=== PATIENT | female | born 1945 | race Caucasian/White ===

== ENCOUNTER 2017-11-21 11:46 | Observation (INO) | payer OTHER ==
--- NOTE | 2017-11-21 13:38 | RAD REPORT ---
EXAM DESCRIPTION: CT - Head Brain Wo Cont - 11/21/2017 1:09 pm CLINICAL HISTORY: Headache, hypertension COMPARISON: None. TECHNIQUE: Axial 5 mm thick images of the head were obtained without IV contrast. All CT scans are performed using dose optimization technique as appropriate and may include automated exposure control or mA/KV adjustment according to patient size. FINDINGS: No intracranial hemorrhage present. No edema, mass effect or shift of midline structures. No cortical edema or sulcal effacement. No significant atrophy and only minimal chronic ischemic lyon ge. Ventricles are normal. In the supra sella region there is an 8 millimeter fatty mass with calcification along the posterior wall. Dermoid/teratoma and hypothalamic lipoma would be differential considerations. The low-density craniopharyngioma felt to be a lesser consideration. No CT findings that would suggest rupture of a d ermoid/teratoma. Mastoid air cells and visualized portions of the paranasal sinuses are clear. No acute bony findings. IMPRESSION: No hemorrhage or acute intracranial finding. A small 8 mm fatty mass in the suprasellar region is present likely a dermoid/teratoma or hypothalami c lipoma. No evidence for leakage or rupture. Supra sella masses can be associated with headache symptoms. However, this usually requires a much la rger sized mass or rupture of a dermoid/ teratoma, neither of which are present on this examination.
[2017-11-21 14:00] LABS: Protime INR 0.97
[2017-11-21 14:01] LABS: Absolute Lymphocytes (CBC) 5.3 K/uL (0.7-4.9); Absolute Monocytes 1.1 K/uL (0.1-1.3); Absolute Neutrophil 8.3 K/uL (1.8-8.0); Basophils % 1.7 % (0-1.3); Eosinophils % 1.3 % (0-4.4); Hematocrit 41.8 % (36.0-45.0); Lymphocytes % 34.7 % (15.3-44.8); MCH 28.3 pg (27.0-35.0); MCV 88.3 fL (80-100); MPV 7.5 fL (7.6-11.3); Monocytes % 7.5 % (3.3-12.3); RBC Red Blood Cell Count 4.74 M/uL (3.86-4.86)
--- NOTE | 2017-11-21 14:02 | RAD REPORT ---
EXAM DESCRIPTION: RAD - Chest Single View - 11/21/2017 1:02 pm CLINICAL HISTORY: Chest pain, shortness of breath COMPARISON: September 2016 TECHNIQUE: AP portable chest image was obtained 1255 hours . FINDINGS: Interstitial markings are mildly prominent, increased from comparison. A few granulomas ar e present. No acute failure, infiltrate or mass. Heart and vasculature are normal. No measurable pleu ral effusion and no pneumothorax. No gross bony abnormality seen. No acute aortic findings suspected. IMPRESSION: No acute cardiopulmonary process. Patient has a mild baseline interstitial lung disease pattern. This is stable back to September 2016.
--- NOTE | 2017-11-21 14:03 | ER ---
Nurse's Notes [facility] Name: Lupis Puga Age: 71 yrs Sex: Female : 1945 Arrival Date: 11/21/2017 Time: 11:56 Bed 19 Private MD: Diagnosis: Essential (primary) hypertension;Chest pain, unspecified Presentation: 11/21 11:57 Presenting complaint: Patient states: Reports HTN for 2 days with chest pressure and aj dizziness. Transition of care: patient was not received from another setting of care. Onset of symptoms was November 19, 2017. Risk Assessment: Do you want to hurt yourself or someone else? Patient reports no desire to harm self or others. Initial Sepsis Screen: Does the patient meet any 2 criteria? No. Patient's initial sepsis screen is negative. Does the patient have a suspected source of infection? No. Patient's initial sepsis screen is negative. Care prior to arrival: None. 11:57 Method Of Arrival: Ambulatory 11:57 Acuity: OLIVIA 3 aj Triage Assessment: 12:01 General: Appears in no apparent distress. comfortable, Behavior is calm, cooperative, aj appropriate for age. Pain: Complains of pain in chest. Neuro: Level of Consciousness is awake, alert, obeys commands, Oriented to person, place, time, situation, Appropriate for age. Cardiovascular: Reports chest pain, fatigue, lightheadedness, nausea, Capillary refill < 3 seconds in bilateral fingers Patient's skin is warm and dry. Respiratory: Airway is patent Respiratory effort is even, unlabored, Respiratory pattern is regular, symmetrical. Derm: Skin is intact, is healthy with good turgor, Skin is pink, warm \T\ dry. normal. 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 - Social history:: Smoking status: Patient/guardian denies using tobacco. - Ebola Screening: : Patient negative for fever greater than or equal to 101.5 degrees Fahrenheit, and additional compatible Ebola Virus Disease symptoms Patient denies exposure to infectious person Patient denies travel to an Ebola-affected area in the 21 days before illness onset No symptoms or risks identified at this time. - Family history:: not pertinent. Screenin:30 Abuse screen: Denies threats or abuse. Denies injuries from another. Nutritional jl7 screening: No deficits noted. Tuberculosis screening: No symptoms or risk factors identified. Fall Risk IV access (20 points). Total Schumacher Fall Scale indicates No Risk (0-24 pts). Assessment: 13:30 General: Appears in no apparent distress. uncomfortable, Behavior is calm, cooperative, jl7 appropriate for age. Pain: Complains of pain in chest Pain does not radiate. Pain currently is 6 out of 10 on a pain scale. Quality of pain is described as pressure, Pain began 2-3 days ago. Is intermittent. Neuro: Level of Consciousness is awake, alert, obeys commands, Oriented to person, place, time, situation. Cardiovascular: Heart tones S1 S2 present Patient's skin is warm and dry. Respiratory: Airway is patent Respiratory effort is even, unlabored, Respiratory pattern is regular, symmetrical, Breath sounds are clear bilaterally. GI: No signs and/or symptoms were reported involving the gastrointestinal system. : No signs and/or symptoms were reported regarding the genitourinary system. EENT: No signs and/or symptoms were reported regarding the EENT system. Derm: Skin is pink, warm \T\ dry. Musculoskeletal: No signs and/or symptoms reported regarding the musculoskeletal system. Vital Signs: 12:01 BP 168 / 96; Pulse 84; Resp 18; Temp 98.6; Pulse Ox 96% on R/A; Weight 88 kg; Height 5 aj ft. 6 in. (167.64 cm); 13:15 BP 182 / 99; Pulse 62; Resp 17; Pulse Ox 92% on R/A; jl7 14:00 BP 136 / 77; Pulse 65; Resp 16; Pulse Ox 94% on R/A; jl7 15:57 BP 137 / 89; Pulse 69; Resp 16; Pulse Ox 97% ; jl7 12:01 Body Mass Index 31.31 (88.00 kg, 167.64 cm) ED Course: 11:56 Patient arrived in ED. aj 11:57 Triage completed. aj 12:01 Arm band placed on left wrist. Patient placed in an exam room. aj 12:32 Kvng Larios MD is Attending Physician. christina 12:54 Dinh Calixto RN is Primary Nurse. jl7 12:58 X-ray completed. Portable x-ray completed in exam room. Patient tolerated procedure jb2 well. 13:[address] via wheelchair. sj 13:02 XRAY Chest (1 view) In Process Unspecified. EDMS 13:02 CT completed. Patient tolerated procedure well. Patient moved back from CT. sj 13:09 CT Head Brain wo Cont In Process Unspecified. EDMS 13:30 Patient has correct armband on for positive identification. Placed in gown. Bed in low jl7 position. Call light in reach. Side rails up X 1. wheel and axle inspector on. Pulse ox on. NIBP on. 13:30 Initial lab(s) drawn, by ED staff, sent to lab. Inserted saline lock: 22 gauge in left jl7 antecubital area, using aseptic technique. Blood collected. Patient maintains SpO2 saturation greater than 95% on room air. 14:01 Vignesh Evans MD is Hospitalizing Provider. [facility] 16:19 No provider procedures requiring assistance completed. Patient admitted, IV remains in jl7 place. Administered Medications: 14:07 Drug: Lovenox 1 mg/kg Route: Sub-Q; Site: abdomen; jl7 16:09 Follow up: Response: No adverse reaction jl7 14:08 Drug: Aspirin Chewable Tablet 324 mg {Note: Pt reports taking 81 mg aspirin today, jl7 Administered 3 tabs.} Route: PO; 16:09 Follow up: Response: No adverse reaction jl7 16:05 Drug: Tylenol 650 mg Route: PO; jl7 16:09 Not Given (Physician Discretion): Lopressor (metoprolol TARTRATE) 50 mg PO once jl7 Outcome: 14:02 Decision to Hospitalize by Provider. christina 16:19 Admitted to Tele accompanied by tech, family with patient, via wheelchair, room 415, jl7 with chart, Report called to JESSICA Harding 16:19 Condition: stable 16:19 Discharge instructions given to patient, family, Instructed on the need for admit, Demonstrated understanding of instructions. 16:43 Patient left the ED. jl7 Signatures: Dispatcher [employer] EDMS Fisher, Lorena, Kvng Suarez RN, MD MD cha Buechter, Jesse jb2 Jones, Susan sj Martinez, Maria [facility] Dinh Calixto RN RN jl7 Corrections: (The following items were deleted from the chart) 14:12 13:57 BP 182 / 99; Pulse 62bpm; Resp 17bpm; Pulse Ox 92% RA; [facility]
--- NOTE | 2017-11-21 14:03 | EDPHYS ---
Physician Documentation [facility] Name: Lupis Puga Age: 71 yrs Sex: Female : 1945 Arrival Date: 11/21/2017 Time: 11:56 Bed 19 Private MD: ED Physician Kvng Larios HPI: 11/21 13:58 This 71 yrs old Female presents to ER via Ambulatory with complaints of High christina Blood Pressure, Chest Pain. 13:58 The patient has elevated blood pressure and discovered this at home. Onset: The christina symptoms/episode began/occurred 3 day(s) ago. 13:59 Onset: 3 day(s) ago. Modifying factors: The symptoms are aggravated by activity, The christina symptoms are alleviated by remaining still. The pain does not radiate. Associated signs and symptoms: Pertinent positives: dizziness, headache. The chest pain is described as a heaviness, a pressure. 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 - Social history:: Smoking status: Patient/guardian denies using tobacco. - Ebola Screening: : Patient negative for fever greater than or equal to 101.5 degrees Fahrenheit, and additional compatible Ebola Virus Disease symptoms Patient denies exposure to infectious person Patient denies travel to an Ebola-affected area in the 21 days before illness onset No symptoms or risks identified at this time. - Family history:: not pertinent. ROS: 13:59 Constitutional: Negative for fever, chills, and weight loss, Eyes: Negative for injury, christina pain, redness, and discharge, ENT: Negative for injury, pain, and discharge, Neck: Negative for injury, pain, and swelling, Respiratory: Negative for shortness of breath, cough, wheezing, and pleuritic chest pain, Abdomen/GI: Negative for abdominal pain, nausea, vomiting, diarrhea, and constipation, Back: Negative for injury and pain, : Negative for injury, bleeding, discharge, and swelling, MS/Extremity: Negative for injury and deformity, Skin: Negative for injury, rash, and discoloration, Psych: Negative for depression, anxiety, suicide ideation, homicidal ideation, and hallucinations. 13:59 Cardiovascular: Positive for chest pain. 13:59 Neuro: Positive for headache. Exam: 13:59 Constitutional: This is a well developed, well nourished patient who is awake, alert, christina and in no acute distress. Head/Face: Normocephalic, atraumatic. Eyes: Pupils equal round and reactive to light, extra-ocular motions intact. Lids and lashes normal. Conjunctiva and sclera are non-icteric and not injected. Cornea within normal limits. Periorbital areas with no swelling, redness, or edema. ENT: Nares patent. No nasal discharge, no septal abnormalities noted. Tympanic membranes are normal and external auditory canals are clear. Oropharynx with no redness, swelling, or masses, exudates, or evidence of obstruction, uvula midline. Mucous membranes moist. Neck: Trachea midline, no thyromegaly or masses palpated, and no cervical lymphadenopathy. Supple, full range of motion without nuchal rigidity, or vertebral point tenderness. No Meningismus. Chest/axilla: Normal chest wall appearance and motion. Nontender with no deformity. No lesions are appreciated. Cardiovascular: Regular rate and rhythm with a normal S1 and S2. No gallops, murmurs, or rubs. Normal PMI, no JVD. No pulse deficits. Respiratory: Lungs have equal breath sounds bilaterally, clear to auscultation and percussion. No rales, rhonchi or wheezes noted. No increased work of breathing, no retractions or nasal flaring. Abdomen/GI: Soft, non-tender, with normal bowel sounds. No distension or tympany. No guarding or rebound. No evidence of tenderness throughout. Back: No spinal tenderness. No costovertebral tenderness. Full range of motion. Female : Normal external genitalia. Skin: Warm, dry with normal turgor. Normal color with no rashes, no lesions, and no evidence of cellulitis. MS/ Extremity: Pulses equal, no cyanosis. Neurovascular intact. Full, normal range of motion. Neuro: Awake and alert, GCS 15, oriented to person, place, time, and situation. Cranial nerves II-XII grossly intact. Motor strength 5/5 in all extremities. Sensory grossly intact. Cerebellar exam normal. Normal gait. Psych: Awake, alert, with orientation to person, place and time. Behavior, mood, and affect are within normal limits. 14:01 Musculoskeletal/extremity: DVT Exam: No signs of deep vein thrombosis. no pain, no christina swelling, no tenderness, negative Homans' sign noted on exam, no appreciated bluish discoloration, no erythema, no increased warmth. Vital Signs: 12:01 BP 168 / 96; Pulse 84; Resp 18; Temp 98.6; Pulse Ox 96% on R/A; Weight 88 kg; Height 5 aj ft. 6 in. (167.64 cm); 13:15 BP 182 / 99; Pulse 62; Resp 17; Pulse Ox 92% on R/A; jl7 14:00 BP 136 / 77; Pulse 65; Resp 16; Pulse Ox 94% on R/A; jl7 15:57 BP 137 / 89; Pulse 69; Resp 16; Pulse Ox 97% ; jl7 12:01 Body Mass Index 31.31 (88.00 kg, 167.64 cm) aj MDM: 12:32 Patient medically screened. [facility] 14:00 Data reviewed: vital signs, nurses notes, lab test result(s), EKG, radiologic studies, [facility] CT scan, MRI, plain films. 11/21 12:44 Order name: Basic Metabolic Panel; Complete Time: 15:11/21 12:44 Order name: CBC with Diff; Complete Time: 15:11/21 12:44 Order name: Ckmb; Complete Time: 15:11/21 12:44 Order name: CPK; Complete Time: 15:11/21 12:44 Order name: LFT's; Complete Time: 15:11/21 12:44 Order name: Magnesium; Complete Time: 15:11/21 12:44 Order name: NT PRO-BNP; Complete Time: 15:11/21 12:44 Order name: PT-INR; Complete Time: 15:11/21 12:44 Order name: Ptt, Activated; Complete Time: 15:11/21 12:44 Order name: Troponin (emerg Dept Use Only); Complete Time: 15:11/21 12:44 Order name: XRAY Chest (1 view); Complete Time: 15:09 11/21 12:45 Order name: CT Head Brain wo Cont; Complete Time: 13:49 11/21 13:57 Order name: Brain Wo Cont MRI [facility] 11/21 12:44 Order name: EKG; Complete Time: 12:45 11/21 12:44 Order name: Cardiac monitoring; Complete Time: 13:59 11/21 12:44 Order name: EKG - Nurse/Tech; Complete Time: 13:59 11/21 12:44 Order name: IV Saline Lock; Complete Time: 13:59 11/21 12:44 Order name: Labs collected and sent; Complete Time: 13:59 11/21 12:44 Order name: O2 Per Protocol; Complete Time: 13:58 11/21 12:44 Order name: O2 Sat Monitoring; Complete Time: 13:58 11/21 12:44 Order name: Urine Dipstick-Ancillary (obtain specimen); Complete Time: 13:58 11/21 14:06 Order name: CONS Physician Consult EDMS Administered Medications: 14:07 Drug: Lovenox 1 mg/kg Route: Sub-Q; Site: abdomen; 16:09 Follow up: Response: No adverse reaction 7 14:08 Drug: Aspirin Chewable Tablet 324 mg {Note: Pt reports taking 81 mg aspirin today, jl7 Administered 3 tabs.} Route: PO; 16:09 Follow up: Response: No adverse reaction 7 16:05 Drug: Tylenol 650 mg Route: PO; 7 16:09 Not Given (Physician Discretion): Lopressor (metoprolol TARTRATE) 50 mg PO once jl7 Disposition: 11/21/17 14:02 Hospitalization ordered by Vignesh Evans for Observation. Preliminary diagnosis are Essential (primary) hypertension, Chest pain, unspecified. - Bed requested for Telemetry/MedSurg (observation). - Status is Observation. jl7 - Condition is Fair. - Problem is new. - Symptoms have improved. UTI on Admission? No Signatures: Dispatcher [employer] EDMS Lorena Fisher RN RN aj Anderson, Corey, MD MD cha Williams, Irene, RN RN iw Nasir Mares em1 Dinh Calixto RN RN jl7 Corrections: (The following items were deleted from the chart) 16:07 14:02 Hospitalization Ordered by Vignesh Evans MD for Observation. Preliminary diagnosis em1 is Essential (primary) hypertension; Chest pain, unspecified. Bed requested for Telemetry/MedSurg (observation). Status is Observation. Condition is Fair. Problem is new. Symptoms have improved. UTI on Admission? No. christina 16:43 16:07 11/21/2017 14:02 Hospitalization Ordered by Vignesh Evans MD for Observation. jl7 Preliminary diagnosis is Essential (primary) hypertension; Chest pain, unspecified. Bed requested for Telemetry/MedSurg (observation). Status is Observation. Condition is Fair. Problem is new. Symptoms have improved. UTI on Admission? No. em1
[2017-11-21] MEDS ORDERED: ASPIRIN 81 MG CHEWABLE TABLET ONE (14:06)
[2017-11-21] MEDS ORDERED: METOPROLOL TAR 50 MG TAB ONE (14:06)
[2017-11-21] MEDS ORDERED: ENOXAPARIN 80 MG/0.8 ML SQ ONE (14:06)
[2017-11-21 14:18] LABS: ALT/SGPT 36 U/L (12-78); AST/SGOT 24 U/L (15-37); Albumin 3.6 g/dL (3.4-5.0); Alkaline Phosphatase 62 U/L (45-117); BUN Blood Urea Nitrogen 23 mg/dL (7-18); Bicarbonate 30 mmol/L (21-32); Bilirubin Direct < 0.1 mg/dL (0-0.2); Bilirubin Total 0.3 mg/dL (0.2-1.0); CKMB Creatine Kinase MB 1.1 ng/mL (0.3-3.6); Creatine Phosphokinase 75 U/L (26-192); Glucose Level 102 mg/dL (74-106); NT PRO-BNP 225 pg/mL (<125); Protein, Total 7.7 g/dL (6.4-8.2); Sodium Level 137 mmol/L (136-145)
[2017-11-21] MEDS ORDERED: MORPHINE 4 MG/ML SYR IV PRN (14:58)
[2017-11-21] MEDS ORDERED: TRAMADOL HCL 50 MG TAB PO PRN (15:01)
[2017-11-21] MEDS ORDERED: NITROGLYCERIN 0.4 MG/TAB SL PRN (15:12)
[2017-11-21] MEDS: ENOXAPARIN 40 MG/0.4 ML SQ SCH (16:00)
[2017-11-21] MEDS ORDERED: ACETAMINOPHEN 325 MG TABLET ONE (16:04)
--- NOTE | 2017-11-21 16:54 | EKG ---
Test Date: 2017-11-21 Test Time: 11:59:34 Biblical Languages Professor: JACOB MEASUREMENT RESULTS: Intervals: Rate: 75 MT: 162 QRSD: 94 QT: 406 QTc: 453 [place]: P: 54 MT: 162 QRS: -21 T: 51 INTERPRETIVE STATEMENTS: Sinus rhythm with premature supraventricular complexes Incomplete right bundle branch block Cannot rule out Anterior infarct, age undetermined Abnormal ECG Compared to ECG 11/09/2013 13:13:04 Atrial premature complex(es) now present Myocardial infarct finding now present Prolonged QT interval no longer present Electronically Signed On 11-21-17 16:53:09 CDT by Sunny Sim
--- NOTE | 2017-11-21 17:07 | ECHO ---
HEIGHT: ft in WEIGHT: lb oz DATE OF STUDY: 11/21/[address]: Vignesh Evans MD 2-DIMENSIONAL: YES M.MODE: YES DOPPLER: YES COLOR FLOW: YES TDS: PORTABLE: DEFINITY: BUBBLE STUDY: DIAGNOSIS: CARDIAC HISTORY: CATHERIZATION: YES SURGERY: NO PROSTHETIC VALVE: NO PACEMAKER: NO MEASUREMENTS (cm) DIASTOLIC (NORMALS) SYSTOLIC (NORMALS) IVSd 1.1 (0.6-1.2) LA Diam 2.8 (1.9-4.0) LVEF 66% LVIDd 4.0 (3.5-5.7) LVIDs 2.5 (2.0-3.5) %FS 36% LVPWd 1.1 (0.6-1.2) Ao Diam 3.2 (2.0-3.7) 2 DIMENSIONAL ASSESSMENT: RIGHT ATRIUM: NORMAL LEFT ATRIUM: NORMAL RIGHT VENTRICLE: NORMAL LEFT VENTRICLE: NORMAL TRICUSPID VALVE: NORMAL MITRAL VALVE: NORMAL PULMONIC VALVE: NORMAL AORTIC VALVE: NORMAL PERICARDIAL EFFUSION: NONE AORTIC ROOT: NORMAL LEFT VENTRICULAR WALL MOTION: NORMAL DOPPLER/COLOR FLOW: IMPAIRED LEFT VENTRICULAR RELAXATION. MILD AORTIC REGURGITATION. COMMENTS: NORMAL TWO DIMENSIONAL ECHOCARDIOGRAM. IMPAIRED LEFT VENTRICULAR RELAXATION. MILD AORTIC REGURGITATION. TECHNOLOGIST: RYLEE HAMPTON
[2017-11-21 18:09] VITALS: BMI 31.3
--- NOTE | 2017-11-21 20:56 | RAD REPORT ---
EXAM DESCRIPTION: MRI - Brain Inc Pituitary W/Wo Con - 11/21/2017 7:21 pm CLINICAL HISTORY: Supra sella mass, headaches, hypertension COMPARISON: CT head November 21 TECHNIQUE: Sagittal T1 weighted, axial proton density, T2 and T2 stir sequences were obtained. Axial diffusion-weighted imaging and ADC mapping sequences obtained. Thin-section sagittal and axial preco ntrast and dynamically enhanced T1 images were obtained. Coronal imaging performed as well. A 19 mill iliter MultiHance gadolinium contrast volume was utilized. FINDINGS: A 10 millimeter supra sella mass is present along the posterior aspect of the suprasellar region. The mass has homogeneous hyperintense T1 signal in masses more heterogeneous on T2 weighted s equencing but is still predominantly hyperintense. Mass is hyperintense on T2 STIR sequencing with li ttle identifiable signal on diffusion-weighted imaging. Post-contrast imaging shows no enhancement wi thin the mass or along the periphery. There is normal enhancement of the pituitary stalk. No abnormal enhancement of the pituitary gland which is seen along the floor of the sella. No intra sella compon ent. No suspicious signal abnormality elsewhere on the examination. No enhancement abnormality. No acute i nfarction changes are seen. Very minimal amounts of chronic ischemic change seen in the cerebral whit e matter. Volume loss is minimal. The supra sella mass signal is contained to the mass itself. No adjacent signal abnormalities to sugg est rupture or leakage from the mass. IMPRESSION: Approximately 10 millimeter fully suprasella oval mass is present and is the correlate t o the CT finding. Patient has atrophy and chronic ischemic change including chronic ischemic change of the morro. No acu te infarction or other acute intracranial finding. The supra sella mass differential includes dermoid/teratoma. A cystic suprasella only craniopharyngio ma would be possible though this is an uncommon presentation. Hypothalamic lipoma would be a primary consideration as well. An aggressive neoplastic process is not suspected. Aneurysm is not suspected. No mass effect is seen from this mass. There is no signal abnormality that would suggest leakage or r upture of a dermoid/teratoma. It is most likely that this mass is unrelated to the patient's headache symptoms.
[2017-11-21] MEDS ORDERED: TEMAZEPAM 15 MG CAP PO SCH (21:00)
[2017-11-21] MEDS ORDERED: ATORVASTATIN 40 MG TAB PO SCH (21:00)
[2017-11-21] MEDS: METOPROLOL TAR 25 MG TAB PO SCH (21:56)
[2017-11-21 23:10] LABS: Urine Appearance CLOUDY; Urine Bilirubin NEGATIVE (NEG); Urine Blood NEGATIVE (NEG); Urine Color YELLOW; Urine Glucose NEGATIVE (NEG); Urine Protein NEGATIVE (NEG); Urine Urobilinogen 0.2 mg/dL (0.2-1.0); Urine pH 5.5 (5.0-7.0)
[2017-11-21 23:33] LABS: Urine Bacteria >50 /HPF (<20); Urine Culture Reflex Order REFLEXED; Urine RBC NONE SEEN /HPF (NONE SEEN)
--- NOTE | 2017-11-22 01:01 | HP ---
Date of Admission: 11/21/2017 Primary Care Physician: Dr. Alcantar. Chief Complaint: Chest pain. History Of Present Illness: The patient is a 71-year-old female with past medical history of hypertension, depression, hyperlipidemia, COPD, hypothyroidism, who was in her usual state of health until 2 days prior to admission when the patient had sudden onset of chest tightness associated with some shortness of breath. Tightness lasted for 5 minutes. No radiation. No nausea, vomiting, diaphoresis, or palpitations. The patient also had subsequent headache associated with elevated blood pressure with a systolic in the 180s. The patient came into the ER yesterday, went to triage to have her blood pressure checked, and confirmed that it was elevated and went back home to take her blood pressure medications. She did not want to be evaluated by an ER physician at that time. The patient returned to the ER today as her blood pressure remained elevated and she was unable to see her PCP whose office is closed on Wednesdays. The patient states that she still has some chest tightness, however, is significantly improved from the first episode. Her symptoms are constant, moderate, and progressively worsening. No alleviating or aggravating factors. No recent changes in medications. She has been compliant with her blood pressure medications. When seen in the ER, she was awake, alert, and oriented x3. [place] [address]. Her initial troponin level was negative. Her chest x-ray did not show any acute changes. 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 No evidence of leakage or rupture. The patient was then referred for admission. Past Medical History: Hypertension, depression, hyperlipidemia, COPD, hypothyroidism. Surgical History: Splenectomy, appendectomy, hysterectomy, left hand surgery, and tonsillectomy. Allergies: TO HYDROCODONE. Medications: Lis reviewed. Family History: Positive for arthritis, anxiety, and depression in the mom. Social History: The patient smoked heavily for the past and has quit 20 years ago. Drinks alcohol seldomly. No illicit drug use. The patient is independent in her activities of daily living. Review of Systems: An 11-point system reviewed, negative except as per HPI. Physical Examination: Vital Signs: Temperature 98.6, respirations 18, pulse 84, blood pressure 116/96 , O2 96% on room air. General: Awake, alert, oriented x3. Some mild distress due to headache. Elderly female, slightly ill appearing. HEENT: Normocephalic, atraumatic. PERRLA. EOMI. Moist mucous membranes. Oropharynx is clear. Poor dentition. Conjunctivae anicteric. Neck: Supple. No JVD. Trachea midline. CV: S1, S2. No murmurs. Regular rate and rhythm. Peripheral pulses are present. Respiratory: Clear to auscultation bilaterally. No wheezing. No stridor. No use of accessory muscles. Gastrointestinal: Abdomen is soft, nontender, and nondistended. Positive bowel sounds. No guarding or rigidity. Extremities: No clubbing, cyanosis. Trace pedal edema. No calf tenderness. Neuro: Cranial nerves 2 through 12 intact grossly. No focal neurological deficit. Speech is normal. Strength is 5/5 bilateral upper and lower extremities. Sensation intact to light touch. Skin: No rashes. Normal skin turgor. Psych: Mood is okay. Affect is full. Insight and judgment are good. Laboratory Data: Sodium 137, potassium 4, chloride 101, CO2 of 30, BUN 23, creatinine 0.9, glucose 102, calcium 9.9, magnesium 2. Troponin less than 0.03. BNP 225. WBC 15.2, H and H 13.4 and 41.8, platelets 567, neutrophils 54% . INR 0.97. Chest x-ray, personally reviewed, shows no acute intrathoracic process. Head CT scan shows no hemorrhage or acute intracranial findings. 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 No evidence of leakage or rupture. Assessment And Plan: A 71-year-old female with; 1. Chest pain, rule out acute coronary syndrome. We will start on chest pain guidelines, beta-ting, aspirin, statin, GÓMEZ inhibitor. We will obtain serial cardiac enzymes and EKG. Morphine and nitroglycerin p.r.n. for pain. Cardiology consultation. We will place on cardiac telemetry. 2. Headache, unclear etiology, may be related to elevated blood pressure. CT scan of the head does not show any acute intracranial bleed. Does have incidental finding of 8 mm suprasellar mass which is likely a lipoma or teratoma. 3. Essential hypertension, uncontrolled. Accelerated hypertension. We will add p.r.n. medications. 4. Mixed hyperlipidemia. We will check lipid panel. Continue statin. 5. Major depressive disorder. Continue home medications. 6. Chronic obstructive pulmonary disease and chronic bronchitis. Albuterol as needed. 7. Hypothyroidism. We will check TSH. Continue home medications. 8. Gastrointestinal and deep venous thrombosis prophylaxes with PPI, Lovenox. Plan: Admit the patient to Med-Surg, place as observation. No living will or MPOA /STEVIE Voice ID: [id number]
[2017-11-22] MEDS: ACETAMINOPHEN 500 MG TAB PO PRN ×2 (03:17→10:50)
[2017-11-22 04:05] LABS: Absolute Monocytes 1.3 K/uL (0.1-1.3); Absolute Neutrophil 6.3 K/uL (1.8-8.0); Basophils % 1.2 % (0-1.3); Eosinophils % 2.3 % (0-4.4); Hematocrit 39.4 % (36.0-45.0); Lymphocytes % 38.4 % (15.3-44.8); MCH 28.7 pg (27.0-35.0); MCV 88.3 fL (80-100); MPV 7.4 fL (7.6-11.3); Monocytes % 9.7 % (3.3-12.3); RBC Red Blood Cell Count 4.46 M/uL (3.86-4.86)
[2017-11-22 04:37] LABS: Potassium 3.5 mmol/L (3.5-5.1)
[2017-11-22 04:48] LABS: Thyroid Stimulating Hormone 6.52 uIU/mL (0.36-3.74)
[2017-11-22] MEDS ORDERED: LEVOTHYROXINE SOD 0.05 MG TABLET PO SCH (08:15)
[2017-11-22] MEDS ORDERED: REGADENOSON 0.4 MG/5 ML SYR IV ONE (08:21)
[2017-11-22 08:39] VITALS: O2SAT 95
[2017-11-22] MEDS ORDERED: FLUOXETINE 20 MG CAP PO SCH (09:00)
[2017-11-22] MEDS ORDERED: LISINOPRIL 10 MG TAB PO SCH (09:00)
[2017-11-22] MEDS ORDERED: LOSARTAN POTASSIUM 50 MG TABLET PO SCH (09:00)
[2017-11-22] MEDS ORDERED: ASPIRIN EC 81 MG TAB PO SCH (09:00)
[2017-11-22] MEDS ORDERED: ALBUTEROL INHALER 60 PUFF/8 GM IH SCH (09:00)
[2017-11-22] MEDS ORDERED: HOME MED 1 EA UNK (Losartan/Hydrochlorothiazide [Losartan-Hctz 100-12.5 Mg Tab] 1 TAB) PO SCH (09:00)
[2017-11-22] MEDS: METOPROLOL TAR 25 MG TAB PO SCH ×2 (09:00→12:14)
[2017-11-22 11:32] VITALS: BP 128/72; TEMP 97.2
[2017-11-22] MEDS: ENOXAPARIN 40 MG/0.4 ML SQ SCH (12:13)
[2017-11-22] MEDS: hydroCHLOROthiazide 12.5 MG CAP PO SCH ×2 (12:16→12:17)
--- NOTE | 2017-11-22 12:29 | TREADPHA ---
DX: CHEST PAIN Date of Study: 11/22/2017 Ht: 5 6 Wt: 194 lb 0 oz Consulting Physician: KEVIN MEDICATIONS: SIMVASTIN, LOSARTAN, FLUOXETINE, TEMAZEPAM, LEVOTHYROXINE, ALBUTEROL, TRAMADOL, LIPITOR, LISINOPRIL, NITROSTAT, TYLENOL EXTRA STRENGTH, ASPIRIN, LOVENOX, RESTORIL HISTORY: 71 YEAR OLD FEMALE WITH COMPLAINTS OF CHEST PAIN. HISTORY OF HYPERTENSION, DYSLIPIDEMIA AND DEPRESSION. PHYSICIAL EXAMINATION: RESTING B.P.: 122/66 RESTING H.R.: 56 RESTING EKG: SINUS BRADYCARDIA, OTHERWISE NORMAL PROTOCOL: LEXISCAN EXERCISE TIME: 3:30 B.P. AT PEAK STRESS: 127/101 IN RECOVERY: 126/71 IMPRESSION: LEXISCAN INJECTED, CARDIOLITE INJECTED PER PROTOCOL. SEE NUCLEAR MEDICINE REPORT. NO SUPRA VENTRICULAR TACHYCARDIA. NO VENTRICULAR TACHYCARDIA. DENIED CHEST PAIN. NEGATIVE EXERCISE TOLERANCE TEST.
--- NOTE | 2017-11-22 13:07 | RAD REPORT ---
EXAM DESCRIPTION: NM - Rest Stress Cardiac Imaging - 11/22/2017 12:17 pm CLINICAL HISTORY: Chest pain COMPARISON: None. TECHNIQUE: The patient was administered 10.3 mCi of Tc 99m Sestamibi prior to resting SPECT imaging of the heart. The patient was then administered 30.3 mCi of Tc 99m Sestamibi following exercise or ph armacologic stress. Multiplanar SPECT images were reviewed. FINDINGS: The end diastolic volume is 98 ml, the end systolic volume is 34 ml, and the ejection frac tion is 65 %. No stress-induced ischemic changes are identifiable. No fixed decreased activity to suspect scarred m yocardium or significant attenuation artifact. IMPRESSION: No stress induced ischemia or other suspicious findings. Ventricular volumes and ejection fraction are normal range.
[2017-11-22] MEDS ORDERED: DOCUSATE NA 100 MG CAP PO SCH (13:28)
--- NOTE | 2017-11-23 02:41 | DS ---
Date of Discharge: 11/22/2017 Consultants: Dr. Goyal with Cardiology. Admitting Diagnoses: 1.Chest pain, rule out acute coronary syndrome. 2.Headache. 3.Incidental finding of brain mass. 4.Essential hypertension. 5.Mixed hyperlipidemia. 6.Major depressive disorder. 7.Chronic obstructive pulmonary disease, chronic bronchitis. 8.Hypothyroidism. Discharge Diagnoses: 1.Chest pain. Acute coronary syndrome ruled out. 2.Headache, improved. 3.Essential hypertension, uncontrolled. Medications adjusted. 4.Mixed hyperlipidemia. Continue statin. 5.Major depressive disorder, stable. 6.Chronic obstructive pulmonary disease, chronic bronchitis. 7.Hypothyroidism. TSH is elevated. Levothyroxine dose adjusted. 8.Incidental finding of a brain mass, 8 mm suprasellar lesion which is likely lipoma or teratoma. Hospital Course: The patient is a 71-year-old female comes in with chest pain and headache. The pat ient was started on chest pain guidelines. Her workup was negative including cardiac enzymes x3. Th e patient was seen by Cardiology, recommended a nuclear stress test, which is not showed any stress-i nduced ischemia. Echocardiogram was done, which showed EF of 66%, did show some impaired left ventri cular relaxation. The patient otherwise did well. Her chest pain had resolved. She did have some h eadache and her blood pressure was not well controlled in the 200 systolic. Blood pressure medicatio ns were adjusted. Her blood pressure did improve to the 120s to 130s. Triglycerides were elevated. The patient did have a PTH, which was normal. TSH was elevated. Her Synthroid dose was adjusted. Prolactin was also checked due to the lesion in the brain. MRI was done to further elucidate the alexi ology of the mass felt to be a cystic suprasellar mass, possibly dermoid or teratoma. A hypothalamic lipoma was also possibility. Aggressive neoplastic process was not suspected. No aneurysm was seen . The patient was recommended to follow up with the prolactin level and have a repeat MRI of the bra in in 3-6 months. Follow up with her primary care physician and to seek neurosurgical evaluation if the lesion has changed. The patient was then cleared for discharge from a cardiology standpoint. He r symptoms had resolved. No further chest pain. Blood pressure was significantly improved. The pat ient was sent home in a stable condition. Activity: As tolerated. Medications: As per medication reconciliation list. Followup: Follow up with Dr. Sullivan in 2-3 days. Follow up with Dr. Goyal with 2 weeks. Diet: Heart healthy. Physical Examination: General: Awake, alert, oriented x3. No acute distress. CV: S1, S2. No murmurs. Respiratory: Clear to auscultation bilaterally. No wheezing gastrointestinal. Abdomen: Abdomen is soft, nontender, nondistended. Positive bowel sounds. Extremities: No clubbing, cyanosis, edema. Neurologic: Nonfocal. SA/MODL Voice ID: [id number] Report ID: [id number]
--- NOTE | 2017-11-23 10:15 | CON ---
Date of Consultation: 11/21/[address] Evans service on 11/21/2017. The patient was seen by me on 11/22/2017. Reason For Consultation: Chest pain and hypertension. History Of Present Illness: Ms. Puga is a 71-year-old white woman, who has a history of hypertension , dyslipidemia, depression, hypothyroidism, and COPD. Noted that her blood pressure is elevated at h ome, was 188/112. Symptoms lasted for about 5 minutes and that included headache, chest tightness, s ome nausea, but no diaphoresis or shortness of breath. Denied any PND, orthopnea, pedal edema, palpi tation, or syncope. She was not sure why her blood pressure went up. She is according to her fairly compliant with her medication. She has also had a history of splenectomy. Allergies: HER ALLERGIES INCLUDE HYDROCODONE. Review of Systems: Negative. Social History: Negative. Family History: Noncontributory. Medications: At home include inhalers, Prozac, Synthroid, Dyazide, and Zocor. Physical Examination: General: She is very pleasant, in no acute distress. HEENT: Negative. Neck: Supple without any lymphadenopathy, JVD, or thyromegaly. Chest: Clear to auscultation and percussion. Cardiac: Regular rhythm and rate without any murmurs, gallops, or rubs. Abdomen: Benign. Extremities: Revealed no clubbing, cyanosis, or edema. Diagnostic Data: She had a chest x-ray, which showed fibrosis. EKG showed left bundle branch block. She had an MRI which was positive and solid mass with a CVA. Her white count was 13,000 , platelets was 526,000. Her TSH was 6.52. Her BNP was 225, triglyceride 160. Impression And Plan: 1.Atypical chest pain that I think is more likely related to uncontrolled hypertension. I think she has a Lexiscan pending and we will see what that shows prior to making final decision. She needs to continue just adding amlodipine to her regimen and low-dose beta-blockers. 2.Depression. 3.Hypertension. 4.Dyslipidemia. 5.Hypothyroidism. 6.Pulmonary fibrosis. 7.Status post splenectomy, which is the cause of her elevated white count and platelets. 45 minutes was spent in the care of Ms. Puga. She was instructed regarding sodium restriction, regar ding her hypertension. She was instructed regarding low-fat, low-cholesterol diet. Regarding her ch olesterol, she was educated about compliance with medication. The case was discussed with her, with Dr. Evans, and with her nurse. We will await the results of Lexiscan prior to making final decision about her discharge. CASTILLO/STEVIE Voice ID: [id number] Report ID: [id number]
== END 2017-11-22 14:15 | disposition home or self-care (01) ==
LOC: ER 11:46 → ERHOLD 14:04 → 4TH 16:19
PROVIDERS: ADMIT Family Medicine; ATTEND Family Medicine
DX: R07.9 Chest pain, unspecified (principal); I10 Essential (primary) hypertension; R51 Headache; E78.2 Mixed hyperlipidemia; F32.9 Major depressive disorder, single episode, unspecified; J44.9 Chronic obstructive pulmonary disease, unspecified; E03.9 Hypothyroidism, unspecified; G93.89 Other specified disorders of brain
CPT/HCPCS: 36415; 70450; 70553; 71045; 78452; 80048; 80061; 80076; 81001; 82550; 82553; 83735; 83880; 83970; 84146; 84439; 84443; 84484; 85025; 85610; 85730; 87077; 87086; 87088; 87186; 93005; 93017; 93306; 94760; 96372; 99285; A9500; A9577; G0378; J1650; J2785

== ENCOUNTER 2019-03-02 11:04 | Inpatient (IN) | payer OTHER ==
[~2019-03-02 11:04] MED LIST: HOME MED 1 EA UNK (Losartan/Hydrochlorothiazide [Losartan-Hctz 100-12.5 Mg Tab] 1 TAB) PO SCH
[2019-03-02] MEDS ORDERED: NA CHLORIDE 0.9% 1,000 ML ONE ×2 (12:24→14:16)
[2019-03-02] MEDS ORDERED: CEFEPIME 1 GM/100 ML BAG IV ONE (12:24)
[2019-03-02 12:35] LABS: Absolute Lymphocytes (CBC) 2.2 K/uL (0.7-4.9); Basophils % 0.9 % (0-1.3); Hematocrit 39.1 % (36.0-45.0); Lymphocytes % 12.6 % (15.3-44.8); MPV 8.1 fL (7.6-11.3); RBC Red Blood Cell Count 4.37 M/uL (3.86-4.86)
[2019-03-02 12:37] LABS: Protime INR 1.16
[2019-03-02 12:53] LABS: ALT/SGPT 23 U/L (12-78); AST/SGOT 16 U/L (15-37); Albumin 3.3 g/dL (3.4-5.0); Alkaline Phosphatase 68 U/L (45-117); BUN Blood Urea Nitrogen 27 mg/dL (7-18); Bicarbonate 24 mmol/L (21-32); Bilirubin Direct 0.1 mg/dL (0-0.2); Bilirubin Total 0.5 mg/dL (0.2-1.0); Creatine Phosphokinase 42 U/L (26-192); Glucose Level 118 mg/dL (74-106); Lipase 107 U/L (73-393); Potassium 3.9 mmol/L (3.5-5.1); Protein, Total 7.3 g/dL (6.4-8.2); Sodium Level 136 mmol/L (136-145); Troponin (Emerg Dept Use Only) < 0.02 ng/mL (0.0-0.045)
[2019-03-02] MEDS ORDERED: VANCOMYCIN/NS 1 gm 1 GM/250 ML BAG IV ONE (13:00)
[2019-03-02 13:56] LABS: Urine Blood 1+ (NEG); Urine Glucose NEGATIVE (NEG); Urine Protein TRACE (NEG); Urine Specific Gravity 1.015 (1.005-1.030); Urine pH 5.5 (5.0-7.0)
[2019-03-02 15:11] LABS: Urine Culture Reflex Order REFLEXED
[2019-03-02 15:12] LABS: Urine Bacteria >50 /HPF (<20); Urine RBC <5 /HPF (NONE SEEN)
--- NOTE | 2019-03-02 15:38 | EDPHYS ---
Physician Documentation [facility] Name: Lupis Puga Age: 73 yrs Sex: Female : 1945 Arrival Date: 03/02/2019 Time: 11:07 Bed 14 Private MD: ED Physician Regan Zavala HPI: 03/02 12:02 This 73 yrs old Female presents to ER via Wheelchair with complaints of jr8 Fever, Pain All Over. 12:02 Onset: The symptoms/episode began/occurred 2 day(s) ago. Associated signs and symptoms: jr8 Pertinent positives: myalgias, Pertinent negatives: abdominal pain, altered mental status, arthralgias, backache, chest pain, headache, runny nose, sinus congestion, sinus drainage, shortness of breath. Severity of symptoms: At their worst the symptoms were moderate. pt states 2 days ago she was working outside mowing and the next day was hurting all over and running low grade fever, denies cough/cold/congestion. . Historical: - Allergies: 11:36 No Known Allergies; aj1 - Home Meds: 11:36 Fluoxetine Oral [Active]; levothyroxine oral [Active]; losartan-hydrochlorothiazide aj1 100-12.5 mg Oral tab 1 tab once daily [Active]; Simvastatin Oral [Active]; temazepam Oral [Active]; - PMHx: 11:36 Depression; Hyperlipidemia; Hypertension; COPD; aj1 - Immunization history:: Flu vaccine is not up to date. - Social history:: Smoking status: Patient/guardian denies using tobacco. - Ebola Screening: : Patient denies travel to an Ebola-affected area in the 21 days before illness onset. ROS: 12:02 Constitutional: Negative for weight loss, Eyes: Negative for injury, pain, redness, jr8 and discharge, ENT: Negative for injury, pain, and discharge, Neck: Negative for injury, pain, and swelling, Cardiovascular: Negative for chest pain, palpitations, and edema, Respiratory: Negative for shortness of breath, cough, wheezing, and pleuritic chest pain, Abdomen/GI: Negative for abdominal pain, nausea, vomiting, diarrhea, and constipation, Back: Negative for injury and pain, MS/Extremity: Negative for injury and deformity, Neuro: Negative for headache, weakness, numbness, tingling, and seizure. 12:02 Constitutional: Positive for chills, fatigue, fever, malaise. Exam: 12:05 Constitutional: This is a well developed, well nourished patient who is awake, alert, jr8 and in no acute distress. Head/Face: Normocephalic, atraumatic. Eyes: Pupils equal round and reactive to light, extra-ocular motions intact. Lids and lashes normal. Conjunctiva and sclera are non-icteric and not injected. Cornea within normal limits. Periorbital areas with no swelling, redness, or edema. ENT: Nares patent. No nasal discharge, no septal abnormalities noted. Tympanic membranes are normal and external auditory canals are clear. Oropharynx with no redness, swelling, or masses, exudates, or evidence of obstruction, uvula midline. Mucous membranes moist. Neck: Trachea midline, no thyromegaly or masses palpated, and no cervical lymphadenopathy. Supple, full range of motion without nuchal rigidity, or vertebral point tenderness. No Meningismus. Chest/axilla: Normal chest wall appearance and motion. Nontender with no deformity. No lesions are appreciated. Cardiovascular: Regular rate and rhythm with a normal S1 and S2. No gallops, murmurs, or rubs. Normal PMI, no JVD. No pulse deficits. Respiratory: Lungs have equal breath sounds bilaterally, clear to auscultation and percussion. No rales, rhonchi or wheezes noted. No increased work of breathing, no retractions or nasal flaring. Abdomen/GI: Soft, non-tender, with normal bowel sounds. No distension or tympany. No guarding or rebound. No evidence of tenderness throughout. MS/ Extremity: Pulses equal, no cyanosis. Neurovascular intact. Full, normal range of motion. Neuro: Awake and alert, GCS 15, oriented to person, place, time, and situation. Cranial nerves II-XII grossly intact. Motor strength 5/5 in all extremities. Sensory grossly intact. Cerebellar exam normal. Normal gait. Vital Signs: 11:36 BP 91 / 71; Pulse 122; Resp 32; Temp 98.2; Pulse Ox 94% on R/A; Weight 92.99 kg (R); aj1 Height 5 ft. 6 in. (167.64 cm) (R); Pain 9/10; 12:30 BP 104 / 78; Pulse 87; Resp 31; Pulse Ox 98% on R/A; rb1 13:30 BP 113 / 73; Pulse 119; Resp 29; Temp 98.5(O); Pulse Ox 97% on R/A; rb1 14:20 BP 135 / 89; Pulse 114; Resp 30; Temp 98.9(O); Pulse Ox 98% on R/A; Pain 8/10; rb1 15:20 BP 157 / 82; Pulse 93; Resp 27; Temp 98.1(O); Pulse Ox 97% on R/A; rb1 16:20 BP 133 / 89; Pulse 114; Resp 21; Pulse Ox 95% on R/A; Pain 7/10; rb1 17:20 BP 140 / 76; Pulse 106; Resp 31; Temp 98.7(O); Pulse Ox 97% on R/A; Pain 5/10; rb1 18:20 BP 138 / 79; Pulse 104; Resp 31; Temp 98.9(O); Pulse Ox 97% on R/A; Pain 4/10; rb1 11:36 Body Mass Index 33.09 (92.99 kg, 167.64 cm) aj1 Maxwell Coma Score: 14:20 Eye Response: spontaneous(4). Verbal Response: oriented(5). Motor Response: obeys rb1 commands(6). Total: 15. MDM: 11:42 Patient medically screened. 8 15:35 Data reviewed: vital signs, nurses notes, lab test result(s), EKG, radiologic studies, jr8 plain films. Data interpreted: Pulse oximetry: on room air is 98 %. Interpretation: normal. Counseling: I had a detailed discussion with the patient and/or guardian regarding: the historical points, exam findings, and any diagnostic results supporting the discharge/admit diagnosis, lab results, radiology results, the need for further work-up and treatment in the hospital. Physician consultation: Dayanara Dong MD was called at 15:37, was contacted at 15:37, regarding admission, to the telemetry unit. consult, patient's condition, and will see patient. 03/02 11:40 Order name: Basic Metabolic Panel; Complete Time: 12:57 8 03/02 11:40 Order name: Blood Culture Adult (2) [facility] 03/02 11:40 Order name: CBC with Diff; Complete Time: 12:39 jr8 10/06 11:40 Order name: CPK; Complete Time: 12:57 03/02 11:40 Order name: Lactate; Complete Time: 12:57 03/02 11:40 Order name: LFT's; Complete Time: 12:57 03/02 11:40 Order name: Lipase; Complete Time: 12:57 03/02 11:40 Order name: Procalcitonin; Complete Time: 13:08 03/02 11:40 Order name: Protime (+inr); Complete Time: 12:48 03/02 11:40 Order name: Ptt, Activated; Complete Time: 12:48 03/02 11:40 Order name: Troponin (emerg Dept Use Only); Complete Time: 12:57 03/02 11:40 Order name: Urine Microscopic Only; Complete Time: 15:31 03/02 11:42 Order name: Flu; Complete Time: 13:45 03/02 13:42 Order name: Urine Dipstick--Ancillary (enter results); Complete Time: 14:07 gm 03/02 11:40 Order name: Chest Single View XRAY; Complete Time: 16:23 03/02 11:40 Order name: Accucheck; Complete Time: 12:54 03/02 11:40 Order name: Cardiac monitoring; Complete Time: 13:50 03/02 11:40 Order name: EKG - Nurse/Tech; Complete Time: 13:50 03/02 11:40 Order name: IV Saline Lock - Large Bore; Complete Time: 12:55 03/02 11:40 Order name: Labs collected and sent; Complete Time: 12:55 03/02 11:40 Order name: O2 Per Protocol; Complete Time: 12:55 03/02 11:40 Order name: O2 Sat Monitoring; Complete Time: 12:55 03/02 11:40 Order name: Urine Dipstick-Ancillary (obtain specimen); Complete Time: 13:50 03/02 15:13 Order name: Urine Culture EDMS Administered Medications: 12:45 Drug: NS 0.9% (30 ml/kg) 30 ml/kg Route: IV; Rate: bolus; Site: left antecubital; rb1 12:50 Drug: Cefepime 1 grams Route: IVPB; Rate: 200 ml/hr; Infused Over: 30 mins; Site: left rb1 antecubital; 13:24 Follow up: IV Status: Completed infusion rb1 14:10 Drug: vancoMYCIN 1 grams Route: IVPB; Infused Over: 2 hrs; Site: left antecubital; rb1 16:12 Follow up: Response: No adverse reaction; IV Status: Completed infusion rb1 14:19 Drug: NS 0.9% (30 ml/kg) 30 ml/kg Route: IV; Rate: bolus; Site: left antecubital; rb1 16:43 Drug: Tylenol 1000 mg Route: PO; rb1 Point of Care Testing: Blood Glucose: 12:40 Blood Glucose: 112 mg/dL; rb1 Ranges: Critical Glucose Levels:Adult <50 mg/dl or >400 mg/dl <40 mg/dl or >180 mg/dl Disposition: 18:57 Co-signature as Attending Physician, Regan Zavala MD. rn Disposition: 03/02/19 15:38 Hospitalization ordered by Dayanara Dong for Inpatient Admission. Preliminary diagnosis is Other specified sepsis - urosepsis. - Bed requested for Telemetry/MedSurg (Inpatient). - Status is Inpatient Admission. rb1 - Condition is Stable. - Problem is new. - Symptoms have improved. UTI on Admission? Yes Signatures: Dispatcher [employer] EDMS Sinai Gallegos RN RN aj1 Regan Zavala MD MD rn Roszak, Josh, PA PA jr8 Nelda Crooks RN RN rb1 aJke Shelton RN RN ja1 Corrections: (The following items were deleted from the chart) 17:03 15:38 Hospitalization Ordered by Dayanara Dong MD for Inpatient Admission. Preliminary ja1 diagnosis is Other specified sepsis - urosepsis. Bed requested for Telemetry/MedSurg (Inpatient). Status is Inpatient Admission. Condition is Stable. Problem is new. Symptoms have improved. UTI on Admission? Yes. jr8 18:37 17:03 03/02/2019 15:38 Hospitalization Ordered by Dayanara Dong MD for Inpatient rb1 Admission. Preliminary diagnosis is Other specified sepsis - urosepsis. Bed requested for Telemetry/MedSurg (Inpatient). Status is Inpatient Admission. Condition is Stable. Problem is new. Symptoms have improved. UTI on Admission? Yes. ja1
--- NOTE | 2019-03-02 15:38 | ER ---
Nurse's Notes [facility] Name: Lupis Puga Age: 73 yrs Sex: Female : 1945 Arrival Date: 03/02/2019 Time: 11:07 Bed 14 Private MD: Diagnosis: Other specified sepsis-urosepsis Presentation: 03/02 11:31 Presenting complaint: Patient states: "I hurt all over, I feel like I've been beat with aj1 a hose, and I've had fever. I have this dog bite on my hand, and I'm concerned about it. I worked in the yard on Sunday and then on I couldn't move and I thought it was because I was sore from the yard work. But I still feel awful" Patient reports that she got a dog bite 10 days ago, no redness of swelling noted around bite. Patient denies drainage from dog bite. Patient reports dry cough. Transition of care: patient was not received from another setting of care. Onset of symptoms was 2018. Risk Assessment: Do you want to hurt yourself or someone else? Patient reports no desire to harm self or others. Initial Sepsis Screen: Does the patient meet any 2 criteria? RR > 20 per min. HR > 90 bpm. Yes Does the patient have a suspected source of infection? Yes: Other: fever, cough. Care prior to arrival: None. 11:31 Method Of Arrival: Wheelchair aj1 11:31 Acuity: OLIVIA 2 aj1 Triage Assessment: 11:37 General: Appears uncomfortable, Behavior is calm, cooperative. Pain: Pain currently is aj1 9 out of 10 on a pain scale. Neuro: Level of Consciousness is awake, alert, obeys commands. Cardiovascular: Patient's skin is warm and dry. Respiratory: Airway is patent Respiratory pattern is tachypnea. Historical: - Allergies: 11:36 No Known Allergies; aj1 - Home Meds: 11:36 Fluoxetine Oral [Active]; levothyroxine oral [Active]; losartan-hydrochlorothiazide aj1 100-12.5 mg Oral tab 1 tab once daily [Active]; Simvastatin Oral [Active]; temazepam Oral [Active]; - PMHx: 11:36 Depression; Hyperlipidemia; Hypertension; COPD; aj1 - Immunization history:: Flu vaccine is not up to date. - Social history:: Smoking status: Patient/guardian denies using tobacco. - Ebola Screening: : Patient denies travel to an Ebola-affected area in the 21 days before illness onset. Screenin:45 Abuse screen: Denies threats or abuse. Nutritional screening: No deficits noted. rb1 Nutritional screening: Pt. is currently doing the Keto diet. Tuberculosis screening: No symptoms or risk factors identified. Fall Risk None identified. Assessment: 11:45 General: Appears uncomfortable, Behavior is calm, cooperative, Reports fever for. Pain: rb1 Complains of pain in generalized Pain currently is 9 out of 10 on a pain scale. Neuro: Level of Consciousness is awake, alert, obeys commands, Oriented to person, place, time, situation. Cardiovascular: Capillary refill < 3 seconds is brisk in bilateral fingers. Respiratory: Airway is patent Respiratory effort is even, unlabored, Respiratory pattern is regular, symmetrical. GI: Reports nausea. : No signs and/or symptoms were reported regarding the genitourinary system. Derm: Skin is pink, warm \\T\\ dry. Musculoskeletal: Range of motion: intact in all extremities. 12:45 Reassessment: Patient appears in no apparent distress at this time. No changes from rb1 previously documented assessment. 13:30 Reassessment: Patient appears in no apparent distress at this time. Patient and/or rb1 family updated on plan of care and expected duration. Pain level reassessed. Patient is alert, oriented x 3, equal unlabored respirations, skin warm/dry/pink. Family at bedside. 14:30 Reassessment: Patient appears in no apparent distress at this time. No changes from rb1 previously documented assessment. 15:30 Reassessment: Patient appears in no apparent distress at this time. Patient and/or rb1 family updated on plan of care and expected duration. Pain level reassessed. Patient is alert, oriented x 3, equal unlabored respirations, skin warm/dry/pink. 16:30 Reassessment: Patient appears in no apparent distress at this time. Pt. requested rb1 medication for a headache. VENANCIO Jackman notified. 17:21 Reassessment: Patient appears in no apparent distress at this time. Patient and/or rb1 family updated on plan of care and expected duration. Pain level reassessed. Patient is alert, oriented x 3, equal unlabored respirations, skin warm/dry/pink. Pain 5/10. 18:20 Reassessment: Patient appears in no apparent distress at this time. No changes from rb1 previously documented assessment. Called report to JESSICA Payan Patient states feeling better. Vital Signs: 11:36 BP 91 / 71; Pulse 122; Resp 32; Temp 98.2; Pulse Ox 94% on R/A; Weight 92.99 kg (R); aj1 Height 5 ft. 6 in. (167.64 cm) (R); Pain 9/10; 12:30 BP 104 / 78; Pulse 87; Resp 31; Pulse Ox 98% on R/A; rb1 13:30 BP 113 / 73; Pulse 119; Resp 29; Temp 98.5(O); Pulse Ox 97% on R/A; rb1 14:20 BP 135 / 89; Pulse 114; Resp 30; Temp 98.9(O); Pulse Ox 98% on R/A; Pain 8/10; rb1 15:20 BP 157 / 82; Pulse 93; Resp 27; Temp 98.1(O); Pulse Ox 97% on R/A; rb1 16:20 BP 133 / 89; Pulse 114; Resp 21; Pulse Ox 95% on R/A; Pain 7/10; rb1 17:20 BP 140 / 76; Pulse 106; Resp 31; Temp 98.7(O); Pulse Ox 97% on R/A; Pain 5/10; rb1 18:20 BP 138 / 79; Pulse 104; Resp 31; Temp 98.9(O); Pulse Ox 97% on R/A; Pain 4/10; rb1 11:36 Body Mass Index 33.09 (92.99 kg, 167.64 cm) aj1 Crocker Coma Score: 14:20 Eye Response: spontaneous(4). Verbal Response: oriented(5). Motor Response: obeys rb1 commands(6). Total: 15. ED Course: 11:07 Patient arrived in ED. as 11:35 Triage completed. aj1 11:36 Arm band placed on Patient placed in an exam room. aj1 11:38 Henry Jackman PA is PHCP. jr8 11:38 Regan Zavala MD is Attending Physician. jr8 11:45 Patient has correct armband on for positive identification. Bed in low position. Call rb1 light in reach. Side rails up X 1. surveillance monitor on. Pulse ox on. NIBP on. 11:51 Chest Single View XRAY In Process Unspecified. EDMS 12:05 Nelda Crooks, RN is Primary Nurse. rb1 12:35 Missed attempt(s): 22 gauge in left antecubital area. Bleeding controlled, band aid rb1 applied, catheter tip intact. 12:45 Inserted saline lock: 22 gauge in left antecubital area, using aseptic technique. Blood rb1 collected. 13:49 Urine collected: clean catch specimen, clear, Amount Voided: 200mL EKG done, by ED jd2 staff. 15:37 Dayanara Dong MD is Hospitalizing Provider. jr8 18:20 No provider procedures requiring assistance completed. Patient admitted, IV remains in rb1 place. Administered Medications: 12:45 Drug: NS 0.9% (30 ml/kg) 30 ml/kg Route: IV; Rate: bolus; Site: left antecubital; rb1 12:50 Drug: Cefepime 1 grams Route: IVPB; Rate: 200 ml/hr; Infused Over: 30 mins; Site: left rb1 antecubital; 13:24 Follow up: IV Status: Completed infusion rb1 14:10 Drug: vancoMYCIN 1 grams Route: IVPB; Infused Over: 2 hrs; Site: left antecubital; rb1 16:12 Follow up: Response: No adverse reaction; IV Status: Completed infusion rb1 14:19 Drug: NS 0.9% (30 ml/kg) 30 ml/kg Route: IV; Rate: bolus; Site: left antecubital; rb1 16:43 Drug: Tylenol 1000 mg Route: PO; rb1 Point of Care Testing: Blood Glucose: 12:40 Blood Glucose: 112 mg/dL; rb1 Ranges: Outcome: 15:38 Decision to Hospitalize by Provider. jr8 18:37 Patient left the ED. rb1 18:37 Admitted to Med/surg accompanied by tech, via wheelchair, room 214, with chart, Report rb1 called to JESSICA Payan. Information from the SBAR was given. all questions asked and answered. 18:37 Condition: stable rb1 18:37 Instructed on the need for admit. Signatures: Dispatcher [employer] EDMS Sinai Gallegos RN RN aj1 Chantell Mares Josh, PA PA jr8 Nelda Crooks, RN RN rb1 Chava Weeksd2 Corrections: (The following items were deleted from the chart) 19:24 18:20 Reassessment: Patient appears in no apparent distress at this time. No changes rb1 from previously documented assessment. Patient states feeling better. rb1
--- NOTE | 2019-03-02 16:13 | RAD REPORT ---
EXAM DESCRIPTION: RAD - Chest Single View - 03/02/2019 11:51 am CLINICAL HISTORY: Dyspnea COMPARISON: November 05 TECHNIQUE: AP portable chest image was obtained 1147 hours . FINDINGS: Lungs are underinflated. Lung markings are accentuated by shallow inspiration. Heart and v asculature are normal. No measurable pleural effusion and no pneumothorax. No acute bony abnormality seen. No acute aortic findings suspected. IMPRESSION: No acute cardiopulmonary process.
[2019-03-02] MEDS ORDERED: ACETAMINOPHEN 500 MG TAB ONE (16:40)
--- NOTE | 2019-03-02 18:18 | P.HP ---
Certification for Inpatient Patient admitted to: Inpatient Practitioner: I am a practitioner with admitting privileges, knowledge of patient current condition, hospital course, and medical plan of care. Services: Services provided to patient in accordance with Admission requirements found in Title 42 Section 412.3 of the Code of Federal Regulations Patient History Date of Service: 03/02/19 Reason for admission: Body aches, chills and fever History of Present Illness: This is a 73-year-old female with past medical history of hyperlipidemia, hypertension, depression who presents to the ER for generalized body aches, fever and chills for the past 3-4 days. Patient states the T-max of 100.7 at home but worsening chills and worsening generalized weakness associated with nausea. She states that she was working outside in the heat couple days ago and then started feeling this way. She denies any chest pain, shortness of breath, headache, vision changes, speech changes, lightheadedness, dizziness, GI complaints. She also currently denies any complaints of dysuria, abdominal pain or back pain. She is not sure she has had urinary urgency or frequency at this time. She was generally feeling bad therefore she came to the ER. In the ER, blood pressure was 91/71, heart rate of 122, respirations of 32, afebrile at 98.2 and satting 94% on room air. She received IV fluids, vancomycin and cefepime. Her vital signs improved blood pressure of 135/89 and heart rate improved to 114. Her labs were remarkable for WBC count elevated at 17.3, with a left shift, creatinine also elevated to 1.31. Her pro calcitonin and lactate were normal. Her urinalysis showed 1+ blood, positive nitrites and leuk Estrace with many bacteria. Cultures were sent. At the time of my exam, she was alert oriented x3, in mild distress due to pain and chills. Her heart rate had improved too high 100s and blood pressure was stable in the 120/70's Allergies hydrocodone [Hydrocodone] Adverse Reaction (Intermediate, Verified 07/19/11 06: 25) Nausea/Vomiting Hydrocodone-Acetaminop Allergy (Uncoded 11/21/17 16:47) Unknown Home medications list reviewed: Yes Home Medications: Albuterol Sulfate [Proair Hfa] 1 dose IH DAILY 11/21/17 Fluoxetine HCl [Prozac] 40 mg PO DAILY 11/21/17 Losartan/Hydrochlorothiazide [Losartan-Hctz 100-12.5 mg Tab] 1 tab PO DAILY Simvastatin 40 mg PO DAILY 11/21/17 Temazepam 15 mg PO BEDTIME 11/21/17 Tramadol HCl [Ultram] 50 mg PO Q6H PRN 11/21/17 Amlodipine [Norvasc] 5 mg PO DAILY #30 tab 11/22/17 Levothyroxine [Synthroid*] 75 mcg PO [id number] #30 tab 11/22/17 - Past Medical/Surgical History Diabetic: No -: hypertension -: hypothyroid -: anxiety -: tonsillectomy -: appendectomy -: ruptured spleen -: hysterectomy -: cyst removal from kidney -: left hand surgery - Family History Father Notes: aortic aneurysm - Social History Alcohol use: No CD- Drugs: No Caffeine use: Yes Review of Systems 10-point ROS is otherwise unremarkable Physical Examination - Physical Exam General: Alert, Oriented x3, Mild distress, Other (unkempt) HEENT: Atraumatic, PERRLA, Mucous membr. moist/pink, EOMI, Sclerae nonicteric Neck: Supple, 2+ carotid pulse no bruit, No LAD, Without JVD or thyroid abnormality Respiratory: Clear to auscultation bilaterally, Normal air movement Cardiovascular: Regular rate/rhythm, Normal S1 S2 Gastrointestinal: Normal bowel sounds, No tenderness Musculoskeletal: No tenderness Integumentary: No rashes Neurological: Normal gait, Normal speech, Normal strength at 5/5 x4 extr, Normal tone, Normal affect Lymphatics: No axilla or inguinal lymphadenopathy - Studies Laboratory Data (last 24 hrs) 03/02/19 12:10: PT 13.6 H, INR 1.16, APTT 32.7 03/02/19 12:10: WBC 17.3 H, Hgb 13.2, Hct 39.1, Plt Count 464 H 03/02/19 12:10: Sodium 136, Potassium 3.9, BUN 27 H, Creatinine 1.31 H, Glucose 118 H, Total Bilirubin 0.5, AST 16, ALT 23, Alkaline Phosphatase 68, Lipase 107 Microbiology Data (last 24 hrs): 03/02/19 12:07 Nasopharnyx Influenza Type A Antigen Screen - Final 03/02/19 12:07 Nasopharnyx Influenza Type B Antigen Screen - Final Assessment and Plan - Problems (Diagnosis) (1) Sepsis Current Visit: Yes Status: Acute Plan: Patient met sepsis criteria on admission with: Hypotension, elevated WBC count , tachycardia, end-organ damage. -patient provided with IV fluids, sepsis protocol in the ER. Will continue with IV hydration -continue IV antibiotics with cefepime at this time -culture sent, pending -monitor via labs Qualifiers: Sepsis type: sepsis due to unspecified organism (2) Urinary tract infection Current Visit: Yes Status: Acute Plan: -see above -continue antibiotics. Cultures are pending, will adjust antibiotics as needed Qualifiers: Urinary tract infection type: acute cystitis Hematuria presence: with hematuria Qualified Code(s): N30.01 - Acute cystitis with hematuria (3) Generalized body aches Current Visit: Yes Status: Acute (4) Hyperlipidemia Current Visit: No Status: Chronic Qualifiers: Hyperlipidemia type: unspecified Qualified Code(s): E78.5 - Hyperlipidemia , unspecified (5) Depression Current Visit: No Status: Chronic Plan: Denies any suicidal or homicidal ideations at this time. Stable -Will restart home medication Qualifiers: Depression Type: major depressive disorder Major depression recurrence: unspecified whether recurrent Active/Remission status: remission status unspecified Qualified Code(s): F32.9 - Major depressive disorder, single episode, unspecified (6) Hypertension Onset Date: 11/22/17 Current Visit: No Status: Chronic Plan: We will hold blood pressure medications at this time, due to low blood pressure. -we will continue to monitor blood pressure restart home medications as needed/ tolerated Qualifiers: Hypertension type: essential hypertension Qualified Code(s): I10 - Essential (primary) hypertension - Plan DVT prophylaxis: Lovenox GI prophylaxis: None Diet: Heart healthy Disposition: Pending symptomatic improvement Discharge Plan: Home Plan to discharge in: Greater than 2 days - Advance Directives Does patient have a Living Will: No Does patient have a Durable POA for Healthcare: No Time Spent Managing Pts Care (In Minutes): 55
[2019-03-02] MEDS: NA CHLORIDE 0.9% 1,000 ML IV SCH ×2 (18:40→19:00)
[2019-03-02] MEDS ORDERED: ONDANSETRON 4 MG/2 ML VIAL IV PRN (18:40)
[2019-03-02] MEDS: CEFEPIME/SWI 1gm 10 ML IV SCH (20:53)
[2019-03-02] MEDS ORDERED: CEFEPIME 1 GM/VIAL IV SCH (21:00)
[2019-03-02] MEDS ORDERED: DIPHENHYDRAMINE 25 MG TAB/CAP PO PRN (21:53)
[2019-03-02] MEDS: TEMAZEPAM 15 MG CAP PO SCH (22:15)
[2019-03-03] MEDS: ACETAMINOPHEN 500 MG TAB PO PRN ×3 (00:23→17:49)
[2019-03-03 03:11] VITALS: BMI 33.0
[2019-03-03] MEDS: NA CHLORIDE 0.9% 1,000 ML IV SCH ×2 (03:58→14:38)
[2019-03-03 06:00] LABS: Albumin 2.6 g/dL (3.4-5.0); Bilirubin Total 0.3 mg/dL (0.2-1.0); Magnesium 1.8 mg/dL (1.8-2.4); Phosphorus 2.5 mg/dL (2.5-4.9); Potassium 4.4 mmol/L (3.5-5.1); Protein, Total 6.3 g/dL (6.4-8.2)
[2019-03-03] MEDS ORDERED: INFLUENZA VACCINE (for 3y+) 0.5 ML DOSE IMVAC ONE (06:00)
[2019-03-03] MEDS ORDERED: PNEUMOCOCCAL VACCINE 0.5 ML IMVAC ONE (06:00)
[2019-03-03 06:40] LABS: Absolute Lymphocytes (CBC) 2.7 K/uL (0.7-4.9); Basophils % 0.9 % (0-1.3); Hematocrit 34.3 % (36.0-45.0); Lymphocytes % 17.2 % (15.3-44.8); MPV 7.8 fL (7.6-11.3); RBC Red Blood Cell Count 3.86 M/uL (3.86-4.86)
[2019-03-03 07:58] LABS: Blood Morphology Comment NOT SEEN (NOT SEEN); Platelet Estimate ADEQ
[2019-03-03] MEDS ORDERED: HOME MED 1 EA UNK (Losartan/Hydrochlorothiazide [Losartan-Hctz 100-12.5 Mg Tab] 1 TAB) PO SCH (09:00)
[2019-03-03] MEDS: CEFEPIME/SWI 1gm 10 ML IV SCH ×2 (09:06→21:24)
[2019-03-03] MEDS: LOSARTAN POTASSIUM 50 MG TABLET PO SCH (09:07)
[2019-03-03] MEDS: LEVOTHYROXINE SOD 0.05 MG TABLET PO SCH (09:07)
[2019-03-03] MEDS: hydroCHLOROthiazide 12.5 MG CAP PO SCH (09:07)
[2019-03-03] MEDS: ENOXAPARIN 40 MG/0.4 ML SQ SCH (09:07)
--- NOTE | 2019-03-03 09:49 | EKG ---
Test Date: 2019-03-02 Test Time: 13:31:41 [employer] Educator: KAITY MEASUREMENT RESULTS: Intervals: Rate: 116 IL: 210 QRSD: 88 QT: 288 QTc: 400 [place]: P: 71 IL: 210 QRS: 33 T: 72 INTERPRETIVE STATEMENTS: Sinus tachycardia with 1st degree AV block Septal infarct, age undetermined Abnormal ECG Compared to ECG 11/21/2017 11:59:34 First degree AV block now present Sinus rhythm no longer present Atrial premature complex(es) no longer present Incomplete right bundle-branch block no longer present Myocardial infarct finding still present Electronically Signed On 03-03-19 09:48:32 CDT by Sunny Sim
--- NOTE | 2019-03-03 12:33 | P.PN ---
Subjective Date of Service: 03/03/19 Chief Complaint: Body aches, chills and fever Subjective: Improving Patient seen and examined at bedside. No family at bedside. Chart reviewed and case discussed with nursing staff. No acute events noted overnight. Doing better this am. No fever overnight Review of Systems 10-point ROS is otherwise unremarkable Physical Examination - Vital Signs Temperature: 99.5 F Blood Pressure: 123/60 Pulse: 87 Respirations: 20 Pulse Ox (%): 96 - Physical Exam General: Alert, In no apparent distress, Oriented x3 HEENT: Atraumatic, PERRLA, EOMI Neck: Supple, JVD not distended Respiratory: Clear to auscultation bilaterally, Normal air movement Cardiovascular: Regular rate/rhythm, Normal S1 S2 Gastrointestinal: Normal bowel sounds, No tenderness Musculoskeletal: No tenderness Integumentary: No rashes Neurological: Normal speech, Normal tone, Normal affect Lymphatics: No axilla or inguinal lymphadenopathy - Studies Laboratory Data (last 24 hrs) 03/02/19 12:10: PT 13.6 H, INR 1.16, APTT 32.7 03/02/19 12:10: WBC 17.3 H, Hgb 13.2, Hct 39.1, Plt Count 464 H 03/02/19 12:10: Sodium 136, Potassium 3.9, BUN 27 H, Creatinine 1.31 H, Glucose 118 H, Total Bilirubin 0.5, AST 16, ALT 23, Alkaline Phosphatase 68, Lipase 107 Microbiology Data (last 24 hrs): 03/02/19 12:07 Nasopharnyx Influenza Type A Antigen Screen - Final 03/02/19 12:07 Nasopharnyx Influenza Type B Antigen Screen - Final Assessment And Plan - Current Problems (Diagnosis) (1) Sepsis Current Visit: Yes Status: Acute Plan: Patient met sepsis criteria on admission with: Hypotension, elevated WBC count , tachycardia, end-organ damage. Improved -patient provided with IV fluids, sepsis protocol in the ER. Will continue with IV hydration -continue IV antibiotics with cefepime at this time -culture sent, pending -monitor via labs Qualifiers: Sepsis type: sepsis due to unspecified organism (2) Urinary tract infection Current Visit: Yes Status: Acute Plan: -see above -continue antibiotics. Cultures are pending, will adjust antibiotics as needed Qualifiers: Urinary tract infection type: acute cystitis Hematuria presence: with hematuria Qualified Code(s): N30.01 - Acute cystitis with hematuria (3) Generalized body aches Current Visit: Yes Status: Acute (4) Hyperlipidemia Current Visit: No Status: Chronic Qualifiers: Hyperlipidemia type: unspecified Qualified Code(s): E78.5 - Hyperlipidemia , unspecified (5) Depression Current Visit: No Status: Chronic Plan: Denies any suicidal or homicidal ideations at this time. Stable -Will restart home medication Qualifiers: Depression Type: major depressive disorder Major depression recurrence: unspecified whether recurrent Active/Remission status: remission status unspecified Qualified Code(s): F32.9 - Major depressive disorder, single episode, unspecified (6) Hypertension Onset Date: 11/22/17 Current Visit: No Status: Chronic Plan: We will hold blood pressure medications at this time, due to low blood pressure. -we will continue to monitor blood pressure restart home medications as needed/ tolerated Qualifiers: Hypertension type: essential hypertension Qualified Code(s): I10 - Essential (primary) hypertension (7) Acute kidney injury Current Visit: Yes Status: Resolved - Plan DVT prophylaxis: Lovenox GI prophylaxis: None Diet: Heart healthy Disposition: Pending symptomatic improvement and cultures. Anticipate discharge home in the next 24 hrs. Discharge Plan: Home Plan to discharge in: 24 Hours
[2019-03-03] MEDS ORDERED: ATORVASTATIN 20 MG TAB PO SCH (21:00)
[2019-03-03] MEDS: TEMAZEPAM 15 MG CAP PO SCH (21:24)
[2019-03-04] MEDS: NA CHLORIDE 0.9% 1,000 ML IV SCH ×2 (00:02→10:40)
[2019-03-04] MEDS: ACETAMINOPHEN 500 MG TAB PO PRN (01:32)
[2019-03-04 06:00] LABS: Absolute Lymphocytes (CBC) 2.3 K/uL (0.7-4.9); Hematocrit 33.1 % (36.0-45.0); Lymphocytes % 19.2 % (15.3-44.8); MPV 8.2 fL (7.6-11.3); RBC Red Blood Cell Count 3.73 M/uL (3.86-4.86)
[2019-03-04 06:09] LABS: Albumin 2.6 g/dL (3.4-5.0); Bilirubin Total 0.3 mg/dL (0.2-1.0); Potassium 3.4 mmol/L (3.5-5.1); Protein, Total 6.4 g/dL (6.4-8.2)
[2019-03-04 06:46] VITALS: O2SAT 95
[2019-03-04] MEDS: LEVOTHYROXINE SOD 0.05 MG TABLET PO SCH (08:17)
[2019-03-04] MEDS: hydroCHLOROthiazide 12.5 MG CAP PO SCH (08:17)
[2019-03-04] MEDS: LOSARTAN POTASSIUM 50 MG TABLET PO SCH (08:18)
[2019-03-04] MEDS: ENOXAPARIN 40 MG/0.4 ML SQ SCH (08:19)
[2019-03-04] MEDS: CEFEPIME/SWI 1gm 10 ML IV SCH (08:21)
[2019-03-04] MEDS ORDERED: POTASSIUM CL SA 10 MEQ TAB PO ONE (09:00)
[2019-03-04 12:11] VITALS: BP 139/74; TEMP 97.5
--- NOTE | 2019-03-04 14:58 | P.DS ---
Admission Date: 03/02/19 Discharge Date: 03/04/19 Disposition: ROUTINE DISCHARGE Discharge Condition: GOOD Reason for Admission: Body aches, chills and fever - Problems (1) Sepsis Status: Acute Qualifiers: Sepsis type: sepsis due to unspecified organism (2) Urinary tract infection Status: Acute Qualifiers: Urinary tract infection type: acute cystitis Hematuria presence: with hematuria Qualified Code(s): N30.01 - Acute cystitis with hematuria (3) Generalized body aches Status: Acute (4) Hyperlipidemia Status: Chronic Qualifiers: Hyperlipidemia type: unspecified Qualified Code(s): E78.5 - Hyperlipidemia , unspecified (5) Depression Status: Chronic Qualifiers: Depression Type: major depressive disorder Major depression recurrence: unspecified whether recurrent Active/Remission status: remission status unspecified Qualified Code(s): F32.9 - Major depressive disorder, single episode, unspecified (6) Hypertension Onset Date: 11/22/17 Status: Chronic Qualifiers: Hypertension type: essential hypertension Qualified Code(s): I10 - Essential (primary) hypertension (7) Acute kidney injury Status: Resolved Brief History of Present Illness: This is a 73-year-old female with past medical history of hyperlipidemia, hypertension, depression who presents to the ER for generalized body aches, fever and chills for the past 3-4 days. Patient states the T-max of 100.7 at home but worsening chills and worsening generalized weakness associated with nausea. She states that she was working outside in the heat couple days ago and then started feeling this way. She denies any chest pain, shortness of breath, headache, vision changes, speech changes, lightheadedness, dizziness, GI complaints. She also currently denies any complaints of dysuria, abdominal pain or back pain. She is not sure she has had urinary urgency or frequency at this time. She was generally feeling bad therefore she came to the ER. In the ER, blood pressure was 91/71, heart rate of 122, respirations of 32, afebrile at 98.2 and satting 94% on room air. She received IV fluids, vancomycin and cefepime. Her vital signs improved blood pressure of 135/89 and heart rate improved to 114. Her labs were remarkable for WBC count elevated at 17.3, with a left shift, creatinine also elevated to 1.31. Her pro calcitonin and lactate were normal. Her urinalysis showed 1+ blood, positive nitrites and leuk Estrace with many bacteria. Cultures were sent. At the time of my exam, she was alert oriented x3, in mild distress due to pain and chills. Her heart rate had improved too high 100s and blood pressure was stable in the 120/70's Hospital Course: Patient is admitted for sepsis, which improved and resolved throughout the stay. She was provided with IV fluids, IV antibiotics. Urine cultures were positive for Enterobacter aerogenes, sensitive to Bactrim. Her antibiotics were converted to oral Bactrim upon discharge. She otherwise did well throughout the stay. Her symptoms did improve prior to discharge. Prior to discharge, she was also afebrile, tolerating oral diet and ambulating without concerns. Her acute kidney injury and resolved prior to discharge. Her diagnoses/treatment plan was explained to her, all questions were answered and she verbalized understanding. She was discharged home in a safe and stable manner on oral Bactrim and with instructions to follow up with the primary care physician in a couple of days. Vital Signs/Physical Exam: Temp Pulse Resp BP Pulse Ox 97.5 F 78 19 139/74 95 03/04/19 12:00 03/04/19 12:00 03/04/19 12:00 03/04/19 12:00 03/04/19 12:00 General: Alert, In no apparent distress, Oriented x3 HEENT: Atraumatic, PERRLA, EOMI Neck: Supple, JVD not distended Respiratory: Clear to auscultation bilaterally, Normal air movement Cardiovascular: Regular rate/rhythm, Normal S1 S2 Gastrointestinal: Normal bowel sounds, No tenderness Musculoskeletal: No tenderness Integumentary: No rashes Neurological: Normal speech, Normal tone, Normal affect Lymphatics: No axilla or inguinal lymphadenopathy Laboratory Data at Discharge: WBC 11.9 K/uL (4.3-10.9) H D 03/04/19 05:15 Hgb 11.3 g/dL (12.0-15.0) L 03/04/19 05:15 Hct 33.1 % (36.0-45.0) L 03/04/19 05:15 Plt Count 449 K/uL (152-406) H 03/04/19 05:15 PT 13.6 SECONDS (9.5-12.5) H 03/02/19 12:10 INR 1.16 03/02/19 12:10 APTT 32.7 SECONDS (24.3-36.9) 03/02/19 12:10 Sodium 141 mmol/L (136-145) 03/04/19 05:15 Potassium 3.4 mmol/L (3.5-5.1) L 03/04/19 05:15 BUN 14 mg/dL (7-18) 03/04/19 05:15 Creatinine 0.89 mg/dL (0.55-1.3) 03/04/19 05:15 Glucose 104 mg/dL (74-106) 03/04/19 05:15 Phosphorus 2.5 mg/dL (2.5-4.9) 03/03/19 05:13 Magnesium 1.8 mg/dL (1.8-2.4) 03/03/19 05:13 Total Bilirubin 0.3 mg/dL (0.2-1.0) 03/04/19 05:15 AST 20 U/L (15-37) 03/04/19 05:15 ALT 29 U/L (12-78) 03/04/19 05:15 Alkaline Phosphatase 76 U/L (45-117) 03/04/19 05:15 Lipase 107 U/L (73-393) 03/02/19 12:10 Home Medications: Albuterol Sulfate [Proair Hfa] 2 puff IN Q4H PRN 03/02/19 Diphenhydramine [Benadryl*] 25 mg PO BEDTIME PRN 03/02/19 Levothyroxine Sodium 50 mcg PO 0900 03/02/19 Losartan/Hydrochlorothiazide [Losartan-Hctz 100-12.5 mg Tab] 1 tab PO DAILY 11/13 Simvastatin 40 mg PO DAILY 03/02/19 Temazepam 15 mg PO BEDTIME 03/02/19 Sulfamethoxazole/Trimethoprim [Bactrim Ds Tablet] 1 each PO BID #6 tablet New Medications: Sulfamethoxazole/Trimethoprim [Bactrim Ds Tablet] 1 each PO BID #6 tablet Patient Discharge Instructions: Please follow up with the primary care physician in 2-3 days Diet: AHA Activity: Ad lee Followup: Rajeev Sullivan DO [Primary Care Provider] - (please call to make an appointment. ) Time spent managing pt's care (in minutes): 55
== END 2019-03-04 13:28 | disposition home or self-care (01) | DRG 872 ==
LOC: ER 11:04 → ERHOLD 16:22 → 2ND 18:28
PROVIDERS: ADMIT Family Medicine; ATTEND Family Medicine
DX: A41.9 Sepsis, unspecified organism (principal); N30.01 Acute cystitis with hematuria; N17.9 Acute kidney failure, unspecified; E78.5 Hyperlipidemia, unspecified; E03.9 Hypothyroidism, unspecified; F32.9 Major depressive disorder, single episode, unspecified; I10 Essential (primary) hypertension; B96.89 Other specified bacterial agents as the cause of diseases classified elsewhere; Z23 Encounter for immunization
CPT/HCPCS: 36415; 71045; 80048; 80053; 80076; 81003; 81015; 82550; 82962; 83605; 83690; 83735; 84100; 84145; 84484; 85025; 85610; 85730; 87040; 87077; 87086; 87088; 87186; 87804; 90471; 90670; 93005; 94760; 96365; 96366; 96367; 96375; 97116; 97161; 99285; J0692; J1650; J3370; J7030; Q2035

== ENCOUNTER 2020-08-26 16:15 | Observation (INO) | payer OTHER ==
--- OUTSIDE RECORDS SUMMARY | 2020-08-26 16:17 | XMS REPORT | Continuity of Care Document ---
:1945 Author Organization [facility] t Address [address] [place] [address] Dr. Viveros [address] [place] [id number] Care Team Providers Name Role Phone Sisi Alexander Attending Clinician [phone] Problems This patient has no known problems. Allergies, Adverse Reactions, Alerts This patient has no known allergies or adverse reactions. Medications This patient has no known medications. Procedures This patient has no known procedures. Encounters Start End Encounter Admission Attending Care Care Encounter Source Date/Time Date/Time Type Type Clinicians Facility Department ID 2020-08-17 2020-08-17 Outpatient [facility] [id number] 00:00:00 00:00:00 , Dianna [id number] Sisi [phone] [id number] Results This patient has no known results.
[2020-08-26 18:20] LABS: Urine Blood Negative (Negative); Urine Glucose Negative (Negative); Urine Protein Negative (Negative); Urine Specific Gravity 1.025 (1.005-1.030); Urine pH 5.5 (5.0-7.0)
[2020-08-26 18:58] LABS: Absolute Lymphocytes (CBC) 4.3 K/uL (0.7-4.9); Albumin 3.7 g/dL (3.4-5.0); Basophils % 1.2 % (0-1.3); Bilirubin Direct 0.1 mg/dL (0-0.2); Bilirubin Total 0.3 mg/dL (0.2-1.0); Hematocrit 38.7 % (36.0-45.0); Lymphocytes % 30.6 % (15.3-44.8); MPV 7.7 fL (7.6-11.3); Magnesium 2.3 mg/dL (1.8-2.4); Protein, Total 7.8 g/dL (6.4-8.2); RBC Red Blood Cell Count 4.34 M/uL (3.86-4.86); Troponin (Emerg Dept Use Only) 0.02 ng/mL (0.0-0.045)
[2020-08-26 18:59] LABS: Protime INR 0.91
--- NOTE | 2020-08-26 19:02 | RAD REPORT ---
EXAM DESCRIPTION: RAD - Chest Pa And Lat (2 Views) - 08/26/2020 4:47 pm CLINICAL HISTORY: SOB COMPARISON: Portable February 2019, two view exam October 2018 TECHNIQUE: Frontal and lateral views of the chest were obtained. FINDINGS: The lungs are normal volume. There is an increase in interstitial opacification in each calos ng base compared to the prior study. No vascular engorgement. Heart size is normal range. Trachea i s midline. No large consolidation or mass. No pleural effusion or pneumothorax seen. No acute bony finding noted. No aortic abnormality. IMPRESSION: Bilateral lung base interstitial edema or infiltrate.
--- NOTE | 2020-08-26 20:51 | RAD REPORT ---
EXAM DESCRIPTION: CT - Chest For Pe Angio - 08/26/2020 8:27 pm CLINICAL HISTORY: SOB COMPARISON: CTANGIO CHEST FOR PE dated 07/19/2011; Chest Pa And Lat (2 Views) dated 08/26/2020 TECHNIQUE: Dynamically enhanced 3 mm thick images of the chest were obtained during administration o f approximately 150mL Isovue 370 IV contrast. Coronal and oblique MIP reconstruction images were gene rated and reviewed. Exam utilizes a protocol to evaluate the pulmonary arterial tree. All CT scans are performed using dose optimization technique as appropriate and may include automated exposure control or mA/KV adjustment according to patient size. FINDINGS: No pulmonary emboli are identified. The aorta as imaged shows no acute or suspicious finding. No pericardial thickening or effusion. No focal mass or consolidation. Interstitial markings are mildly prominent in each lung base. Finding is minimal but could be a mild edema or infiltrate. . No pleural effusion or pleural thickening. No mediastinal or hilar suspicious masses. No chest wall masses or abnormal axillary lymphadenopathy. IMPRESSION: No pulmonary emboli identified. Mild interstitial prominence in each lung base. This could be mild edema or infiltrate.
[2020-08-26] MEDS ORDERED: IPRATROPIUM BROM 0.5MG/2.5ML ONE (21:31)
[2020-08-26] MEDS ORDERED: HYDROCORTISONE SUC 100 MG INJ ONE (21:31)
[2020-08-26] MEDS ORDERED: CEFTRIAXONE/SWI 1gm 1 GM/10 ML SYR ONE (21:32)
[2020-08-26] MEDS ORDERED: ALBUTEROL 2.5 MG/3 ML NEB SOL ONE (21:32)
[2020-08-26] MEDS ORDERED: AZITHROMYCIN 500 MG INJ IVPB ONE (21:59)
[2020-08-26] MEDS ORDERED: NA CHLORIDE 0.9% 250 ML ONE (21:59)
--- NOTE | 2020-08-26 22:07 | EDPHYS ---
Physician Documentation [facility] Name: Lupis Puga Age: 74 yrs Sex: Female : 1945 Arrival Date: 08/26/2020 Time: 16:17 Bed 18 Private MD: ED Physician Kvng Larios HPI: 08/26 18:05 This 74 yrs old Female presents to ER via Ambulatory with complaints of cp Shortness Of Breath. 18:05 The patient has shortness of breath at rest. Onset: The symptoms/episode began/occurred cp gradually, and became worse 3 day(s) ago. Duration: The symptoms are continuous, and are steadily getting worse. Associated signs and symptoms: Pertinent positives: non-productive cough, chest pressure, Pertinent negatives: fever, vomiting, swelling and/or pain in legs. Severity of symptoms: in the emergency department the symptoms are unchanged despite home interventions. Historical: - Allergies: 16:28 No Known Allergies; ca1 - PMHx: 16:28 COPD; Depression; Hyperlipidemia; Hypertension; kidney Disease Stage III; ca1 - PSHx: 16:28 spleenectomy; Appendectomy; Hysterectomy; ca1 - Immunization history:: Pneumococcal vaccine is up to date, Flu vaccine is not up to date. - Social history:: Smoking status: Patient denies any tobacco usage or history of. ROS: 18:10 Constitutional: Negative for body aches, chills, fever, poor PO intake. cp 18:10 Eyes: Negative for injury, pain, redness, and discharge. cp 18:10 Cardiovascular: Positive for chest pressure, Negative for edema, palpitations. cp 18:10 ENT: Negative for ear pain, sore throat, difficulty swallowing, difficulty handling cp secretions. 18:10 Respiratory: Positive for cough, with no reported sputum, orthopnea, shortness of breath, at rest. Negative for wheezing. 18:10 Abdomen/GI: Negative for abdominal pain, nausea, vomiting, and diarrhea. 18:10 Back: Negative for pain at rest, pain with movement. 18:10 Neuro: Negative for altered mental status, headache, syncope, weakness. 18:10 All other systems are negative. Exam: 18:05 ECG was reviewed by the Attending Physician. cp 18:13 Constitutional: The patient appears in no acute distress, alert, awake, cp non-diaphoretic, non-toxic, well developed, well nourished. 18:13 Head/Face: Normocephalic, atraumatic. cp 18:13 Eyes: Periorbital structures: appear normal, Conjunctiva: normal, no exudate, no injection, Sclera: no appreciated abnormality, Lids and lashes: appear normal, bilaterally. 18:13 ENT: External ear(s): are unremarkable, Nose: is normal, Mouth: Lips: moist, Oral mucosa: moist, Posterior pharynx: Airway: no evidence of obstruction, patent. 18:13 Neck: ROM/movement: is normal, is supple, without pain, no range of motions limitations. 18:13 Chest/axilla: Inspection: normal, Palpation: is normal, no crepitus, no tenderness. 18:13 Cardiovascular: Rate: normal, Rhythm: regular, Edema: is not appreciated, JVD: is not appreciated. 18:13 Respiratory: the patient does not display signs of respiratory distress, Respirations: labored breathing, is not present, intercostal retractions, are absent, shallow respirations, are not present, Breath sounds: are clear throughout, no decreased breath sounds, no stridor, no wheezing. 18:13 Abdomen/GI: Inspection: abdomen appears normal, Palpation: abdomen is soft and non-tender, in all quadrants. 18:13 Back: pain, is absent, ROM is normal. 18:13 Neuro: Orientation: to person, place \T\ time. Mentation: is normal, Cerebellar function: is grossly normal, Motor: moves all fours, strength is normal, Sensation: is normal. Vital Signs: 16:22 Pulse 100; Resp 24 S; Temp 97.3(TE); Pulse Ox 97% on R/A; Weight 104.33 kg (R); Height ca1 5 ft. 6 in. (167.64 cm) (R); Pain 0/10; 16:29 BP 131 / 66; ca1 17:57 BP 154 / 77; Pulse 67; Resp 16; Pulse Ox 100% on R/A; vg1 19:23 BP 155 / 74; Pulse 64; Resp 17; Pulse Ox 96% on R/A; wh 21:45 BP 148 / 82; Pulse 105; Resp 18; Pulse Ox 96% on R/A; wh 23:30 BP 133 / 66; Pulse 96; Resp 18; Pulse Ox 94% on R/A; wh 16:22 Body Mass Index 37.12 (104.33 kg, 167.64 cm) ca1 MDM: 17:48 Patient medically screened. cp 21:10 Data reviewed: vital signs, nurses notes, lab test result(s), EKG, radiologic studies, cp CT scan, plain films. 21:10 Test interpretation: by ED physician or midlevel provider: ECG, plain radiologic cp studies. 08/26 18:02 Order name: Basic Metabolic Panel; Complete Time: 19:48 cp 08/26 19:48 Interpretation: Normal except: BUN 21; GFR 53. cp 08/26 18:02 Order name: CBC with Diff; Complete Time: 19:48 cp 08/26 19:48 Interpretation: Normal except: WBC 14.10; PLT 532; NEUT A 8.3. cp 08/26 18:02 Order name: LFT's; Complete Time: 19:48 cp 08/26 20:54 Interpretation: Normal except: GLOB 4.1; A/G 0.9. cp 08/26 18:02 Order name: Magnesium; Complete Time: 19:48 cp 08/26 18:02 Order name: NT PRO-BNP; Complete Time: 19:48 cp 08/26 20:55 Interpretation: Within normal limits: NT PRO-BNP 95. cp 08/26 18:02 Order name: PT-INR; Complete Time: 19:48 cp 08/26 16:29 Order name: Chest Pa And Lat (2 Views) XRAY; Complete Time: 19:04 ca1 08/26 19:05 Interpretation: Report reviewed. cp 08/26 18:02 Order name: Troponin (emerg Dept Use Only); Complete Time: 19:48 cp 08/26 18:20 Order name: Urine Dipstick-Ancillary; Complete Time: 19:04 EDMS 08/26 19:40 Order name: SARS-COV-2 RT PCR; Complete Time: 19:48 EDMS 08/26 19:50 Order name: CT Chest For PE Angio; Complete Time: 20:52 cp 08/26 16:29 Order name: EKG - Nurse/Tech; Complete Time: 16:34 ca1 08/26 16:29 Order name: EKG; Complete Time: 16:29 ca1 08/26 18:02 Order name: Cardiac monitoring; Complete Time: 18:19 cp 08/26 18:02 Order name: IV Saline Lock; Complete Time: 20:11 cp 08/26 18:02 Order name: Labs collected and sent; Complete Time: 18:34 cp 08/26 18:02 Order name: O2 Per Protocol; Complete Time: 18:19 cp 08/26 18:02 Order name: O2 Sat Monitoring; Complete Time: 18:19 cp 08/26 18:02 Order name: Urine Dipstick-Ancillary (obtain specimen); Complete Time: 18:19 cp EC:05 Rate is 91 beats/min. Rhythm is regular. AK interval is normal. QRS interval is normal. T waves are Inverted in lead aVL. Interpreted by me. Reviewed by me. Administered Medications: 20:17 Drug: Albuterol 2.5 mg Route: Inhalation; 20:17 Drug: AtroVENT Aerosol 0.5 mg Route: Inhalation; 21:19 Drug: SOLU-Medrol 80 mg Route: IVP; Site: left forearm; 23:44 Follow up: Response: No adverse reaction 21:21 Drug: Rocephin (cefTRIAXone) 1 grams Route: IV; Rate: calculated rate; Site: left forearm; 23:43 Follow up: Response: No adverse reaction; IV Status: Completed infusion 21:53 Drug: Zithromax (azithromycin) 500 mg Route: IVPB; Infused Over: 1 hrs; Site: left forearm; 23:43 Follow up: Response: No adverse reaction; IV Status: Completed infusion Disposition: 08/27 08:13 Co-signature as Attending Physician, Kvng Larios MD I agree with the assessment and [facility] plan of care. Disposition: 08/26/20 22:05 Hospitalization ordered by Aman Zavala for Observation. Preliminary diagnosis are Pneumonia due to other specified infectious organisms, Orthopnea. - Bed requested for Telemetry/MedSurg (observation). - Status is Observation. - Condition is Stable. - Problem is new. - Symptoms have improved. Signatures: Dispatcher [employer] Kvng Hill MD MD cha Page, Corey, PA PA cp Garcia, Cindy, Sheeba Stephen RN, RN RN Charlene Roger RN RN ca1 Corrections: (The following items were deleted from the chart) 08/26 20:13 18:02 CORONAVIRUS+MR.LAB.BRZ ordered. EDMS EDMS 23:07 22:05 Hospitalization Ordered by Aman Zavala MD for Observation. Preliminary cg diagnosis is Pneumonia due to other specified infectious organisms; Orthopnea. Bed requested for Telemetry/MedSurg (observation). Status is Observation. Condition is Stable. Problem is new. Symptoms have improved. cp 08/27 00:08 04 23:07 08/26/2020 22:05 Hospitalization Ordered by Aman Zavala MD for Observation. Preliminary diagnosis is Pneumonia due to other specified infectious organisms; Orthopnea. Bed requested for Telemetry/MedSurg (observation). Status is Observation. Condition is Stable. Problem is new. Symptoms have improved. cg
--- NOTE | 2020-08-26 22:07 | ER ---
Nurse's Notes [facility] Name: Lupis Puga Age: 74 yrs Sex: Female : 1945 Arrival Date: 08/26/2020 Time: 16:17 Bed 18 Private MD: Diagnosis: Pneumonia due to other specified infectious organisms;Orthopnea Presentation: 08/26 16:22 Chief complaint: Patient states: SOB with exertion months ago, feeling exhausted. Has ca1 been progressively difficult to breathe, that I can't even walk a short distance without having trouble breathing. Had X-ray Sunday, my doctor looked them up today and was sent here to the ER. Reports chest heaviness and pressure off and on for weeks. Coronavirus screen: Client denies travel out of the [place] in the last 14 days. difficulty breathing, shortness of breath, Client presents with at least one sign or symptom that may indicate coronavirus-19. Standard/surgical mask placed on the client. Provider contacted for isolation considerations. Ebola Screen: Patient negative for fever greater than or equal to 101.5 degrees Fahrenheit, and additional compatible Ebola Virus Disease symptoms Patient denies exposure to infectious person. Patient denies travel to an Ebola-affected area in the 21 days before illness onset. No symptoms or risks identified at this time. Initial Sepsis Screen: Does the patient meet any 2 criteria? No. Patient's initial sepsis screen is negative. Does the patient have a suspected source of infection? No. Patient's initial sepsis screen is negative. Risk Assessment: Do you want to hurt yourself or someone else? Patient reports no desire to harm self or others. 16:22 Method Of Arrival: Ambulatory ca1 16:22 Acuity: OLIVIA 2 ca1 16:22 Onset of symptoms was August 26, 2020. ca1 Triage Assessment: 19:30 Respiratory: Onset: The symptoms/episode began/occurred gradually, the patient reports wh symptoms have resolved. Historical: - Allergies: 16:28 No Known Allergies; ca1 - PMHx: 16:28 COPD; Depression; Hyperlipidemia; Hypertension; kidney Disease Stage III; ca1 - PSHx: 16:28 spleenectomy; Appendectomy; Hysterectomy; ca1 - Immunization history:: Pneumococcal vaccine is up to date, Flu vaccine is not up to date. - Social history:: Smoking status: Patient denies any tobacco usage or history of. Screenin:56 Abuse screen: Denies threats or abuse. Nutritional screening: No deficits noted. vg1 Tuberculosis screening: No symptoms or risk factors identified. Fall Risk No fall in past 12 months (0 pts). No secondary diagnosis (0 pts). IV access (20 points). Ambulatory Aid- None/Bed Rest/Nurse Assist (0 pts). Gait- Normal/Bed Rest/Wheelchair (0 pts) Mental Status- Oriented to own ability (0 pts). Total Schumacher Fall Scale indicates No Risk (0-24 pts). Assessment: 17:54 General: Appears in no apparent distress. comfortable, Behavior is calm, cooperative. vg1 Pain: Denies pain. Neuro: Level of Consciousness is awake, alert, obeys commands, Oriented to person, place, time, situation. Cardiovascular: Capillary refill < 3 seconds in bilateral fingers. Respiratory: Reports shortness of breath on exertion cough that is dry, Airway is patent Respiratory effort is even, unlabored, Respiratory pattern is regular, symmetrical, Breath sounds are clear bilaterally. GI: No signs and/or symptoms were reported involving the gastrointestinal system. : No signs and/or symptoms were reported regarding the genitourinary system. EENT: No signs and/or symptoms were reported regarding the EENT system. Derm: Skin is intact, Skin is pink, warm \T\ dry. Musculoskeletal: Circulation, motion, and sensation intact. 19:22 General: Appears in no apparent distress. Behavior is calm, cooperative, appropriate wh for age. Pain: Denies pain. Neuro: Level of Consciousness is awake, alert, obeys commands, Oriented to person, place, time, situation, Appropriate for age. Cardiovascular: Heart tones S1 S2 Rhythm is regular. Respiratory: Airway is patent Respiratory effort is even, unlabored, Respiratory pattern is regular, symmetrical, Breath sounds are clear bilaterally. GI: No signs and/or symptoms were reported involving the gastrointestinal system. : No signs and/or symptoms were reported regarding the genitourinary system. EENT: No signs and/or symptoms were reported regarding the EENT system. Derm: Skin is intact, is healthy with good turgor, Skin is pink, warm \T\ dry. normal. Musculoskeletal: Circulation, motion, and sensation intact. 20:45 Reassessment: Patient appears in no apparent distress at this time. No changes from wh previously documented assessment. Patient and/or family updated on plan of care and expected duration. Pain level reassessed. Patient is alert, oriented x 3, equal unlabored respirations, skin warm/dry/pink. 22:00 Reassessment: Patient appears in no apparent distress at this time. Patient and/or wh family updated on plan of care and expected duration. Pain level reassessed. Patient is alert, oriented x 3, equal unlabored respirations, skin warm/dry/pink. Provider at bedside explaining POC need for admit. 23:15 Reassessment: Patient appears in no apparent distress at this time. Patient and/or wh family updated on plan of care and expected duration. Pain level reassessed. Patient is alert, oriented x 3, equal unlabored respirations, skin warm/dry/pink. Vital Signs: 16:22 Pulse 100; Resp 24 S; Temp 97.3(TE); Pulse Ox 97% on R/A; Weight 104.33 kg (R); Height ca1 5 ft. 6 in. (167.64 cm) (R); Pain 0/10; 16:29 BP 131 / 66; ca1 17:57 BP 154 / 77; Pulse 67; Resp 16; Pulse Ox 100% on R/A; vg1 19:23 BP 155 / 74; Pulse 64; Resp 17; Pulse Ox 96% on R/A; wh 21:45 BP 148 / 82; Pulse 105; Resp 18; Pulse Ox 96% on R/A; 23:30 BP 133 / 66; Pulse 96; Resp 18; Pulse Ox 94% on R/A; 16:22 Body Mass Index 37.12 (104.33 kg, 167.64 cm) ca1 ED Course: 16:17 Patient arrived in ED. ds1 16:27 Triage completed. ca1 16:28 Arm band placed on right wrist. ca1 16:45 Chest Pa And Lat (2 Views) XRAY In Process Unspecified. EDMS 17:43 Kvng Pedroza PA is PHCP. cp 17:43 Isai Dixon MD is Attending Physician. cp 17:54 Radha Decker, RN is Primary Nurse. vg1 17:57 Patient has correct armband on for positive identification. Bed in low position. Call vg1 light in reach. Side rails up X 1. 19:06 Kvng Larios MD is Attending Physician. cp 20:00 Inserted saline lock: 22 gauge in left forearm, using aseptic technique. Blood wh collected. 20:06 Radiology exam delayed due to IV insertion attempt and/or patient not having vm2 appropriate IV at this time. 20:27 CT Chest For PE Angio In Process Unspecified. EDND 22:05 Aman Zavala MD is Hospitalizing Provider. cp 23:10 Primary Nurse role handed off by Radha Decker RN mw2 23:22 Sheeba Marti RN is Primary Nurse. 23:42 No provider procedures requiring assistance completed. Patient admitted, IV remains in place. Administered Medications: 20:17 Drug: Albuterol 2.5 mg Route: Inhalation; 20:17 Drug: AtroVENT Aerosol 0.5 mg Route: Inhalation; 21:19 Drug: SOLU-Medrol 80 mg Route: IVP; Site: left forearm; 23:44 Follow up: Response: No adverse reaction 21:21 Drug: Rocephin (cefTRIAXone) 1 grams Route: IV; Rate: calculated rate; Site: left forearm; 23:43 Follow up: Response: No adverse reaction; IV Status: Completed infusion 21:53 Drug: Zithromax (azithromycin) 500 mg Route: IVPB; Infused Over: 1 hrs; Site: left forearm; 23:43 Follow up: Response: No adverse reaction; IV Status: Completed infusion Outcome: 22:05 Decision to Hospitalize by Provider. cp 23:42 Admitted to Med/surg accompanied by tech, via wheelchair, room 220, with chart, Report called to Emeli LOPEZ 23:42 Condition: stable 23:42 Instructed on the need for admit. 0402 00:08 Patient left the ED. Signatures: Dispatcher [employer] EDND Angelika Schmidt ds1 Kvng Pedroza PA PA cp McGuire, Victoria 2 Sheeba Marti RN RN Cristin Castellon mw2 Charlene Roger RN RN [facility] Radha Decker RN RN vg1 Corrections: (The following items were deleted from the chart) 08/26 17:56 17:54 Respiratory: Airway is patent Respiratory effort is even, unlabored, Respiratory vg1 pattern is regular, symmetrical, Breath sounds are clear bilaterally. vg1
--- NOTE | 2020-08-26 23:40 | P.HP ---
Certification for Inpatient Patient admitted to: Observation With expected LOS: <2 Midnights Patient will require the following post-hospital care: None Practitioner: I am a practitioner with admitting privileges, knowledge of patient current condition, hospital course, and medical plan of care. Services: Services provided to patient in accordance with Admission requirements found in Title 42 Section 412.3 of the Code of Federal Regulations <EnriqueLewis - Last Filed: 08/26/20 23:37> Patient History Date of Service: 08/26/20 Primary Care Provider: Dianna Henao Reason for admission: COPD exacerbation History of Present Illness: 74-year-old female with history of hypertension, suspected underlying COPD, CKD 3 presents emergency department for shortness of breath. Patient reports that she has had increasing shortness of breath over the course of the last month with significant dyspnea on exertion and resting shortness of breath. Initially upon presentation to the emergency department patient noted to have expiratory wheezing, was given albuterol/Solu-Medrol and had some improvement was still significantly short of breath. Chest x-ray demonstrates bilateral lung base interstitial edema versus infiltrate CT chest interstitial markings mildly prominent each lung base finding is minimal but could be mild edema or infiltrate no pleural effusion or pleural thickening, no PE. Lab significant for white blood cell count 14.1, patient has had splenectomy platelets 532 GFR 53 which is similar to patient's baseline, COVID negative. ED provider wishes to admit patient under observation for suspected COPD exacerbation. Patient has not been previously diagnosed with COPD but does have a 20 pack-year smoking history but quit many years prior. - Past Medical/Surgical History Diabetic: No -: hypertension -: hypothyroid -: anxiety -: Suspected COPD -: tonsillectomy -: appendectomy -: ruptured spleen -: hysterectomy -: cyst removal from kidney -: left hand surgery Psychosocial/ Personal History: Patient retired, lives with family - Family History Father Notes: aortic aneurysm - Social History Smoking Status: Former smoker Alcohol use: No CD- Drugs: No Caffeine use: Yes Place of Residence: Home <Lewis Nunez - Last Filed: 08/26/20 23:37> Date of Service: 08/27/20 <Aman Zavala - Last Filed: 08/27/20 22:04> Allergies hydrocodone [Hydrocodone] Adverse Reaction (Intermediate, Verified 07/19/11 06:25) Nausea/Vomiting Home Medications: Albuterol Sulfate [Proair Hfa] 2 puff IN Q4H PRN 03/02/19 Diphenhydramine [Benadryl*] 25 mg PO BEDTIME PRN 03/02/19 Levothyroxine Sodium 50 mcg PO 0900 03/02/19 Losartan/Hydrochlorothiazide [Losartan-Hctz 100-12.5 mg Tab] 1 tab PO DAILY 03/02/19 Simvastatin 40 mg PO DAILY 03/02/19 Temazepam 15 mg PO BEDTIME 03/02/19 Benzonatate [Tessalon Perle*] 100 mg PO Q6H PRN 5 Days #20 cap 08/27/20 Fluticasone/Salmeterol [Advair 250-50 Diskus] 1 each IH BID 30 Days #1 blst.w.dev 08/27/20 predniSONE [Deltasone*] 10 mg PO BID 10 Days #20 tab 08/27/20 Review of Systems 10-point ROS is otherwise unremarkable Respiratory: Cough, Shortness of Breath, SOB with Excertion <Lewis Nunez - Last Filed: 08/26/20 23:37> Physical Examination - Physical Exam General: Alert, In no apparent distress HEENT: Atraumatic, PERRLA, Mucous membr. moist/pink Neck: Supple, 2+ carotid pulse no bruit, No LAD Respiratory: Normal air movement, Diminished, Expiratory wheezes Cardiovascular: Regular rate/rhythm, Normal S1 S2 Gastrointestinal: Normal bowel sounds, No tenderness Musculoskeletal: No tenderness Integumentary: No rashes Neurological: Normal speech, Normal strength at 5/5 x4 extr, Normal tone, Normal affect - Studies Laboratory Data (last 24 hrs) 08/26/20 18:24: PT 10.5, INR 0.91 08/26/20 18:24: WBC 14.10 H, Hgb 12.7, Hct 38.7, Plt Count 532 H 08/26/20 18:24: Sodium 139, Potassium 4.0, BUN 21 H, Creatinine 1.02, Glucose 99, Magnesium 2.3 D, Total Bilirubin 0.3, AST 23, ALT 30, Alkaline Phosphatase 73 <Lewis Nunez - Last Filed: 08/26/20 23:37> Assessment and Plan - Plan Assessment Dyspnea, expiratory wheezing suspected underlying COPD with exacerbation Hypertension CKD 3 Plan Dyspnea, expiratory wheezing suspected underlying COPD with exacerbation: Continue with scheduled breathing treatments, Solu-Medrol pulmonology consulted. 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 DVT prophylaxis Lovenox 40 mg subcutaneous once daily. Hypertension: Continue home med CKD 3: Stable, avoid nephrotoxic agents. Discharge Plan: Home Plan to discharge in: 24 Hours - Advance Directives Does patient have a Living Will: No Does patient have a Durable POA for Healthcare: No - Code Status/Comfort Care Code Status Assessed: Yes (Full code) Critical Care: No Time Spent Managing Pts Care (In Minutes): 55 <Lewis Nunez - Last Filed: 08/26/20 23:37> - Plan plan reviewed as noted above acute COPD exacerbation -nebs, steroids, antibiotics for now <Aman Zavala - Last Filed: 08/27/20 22:04>
[2020-08-26] MEDS ORDERED: ACETAMINOPHEN 500 MG TAB PO PRN (23:57)
[2020-08-26] MEDS ORDERED: ONDANSETRON 4 MG/2 ML VIAL IV PRN (23:57)
[2020-08-27 00:28] VITALS: BMI 36.1
[2020-08-27] MEDS ORDERED: TEMAZEPAM 15 MG CAP PO PRN (00:51)
[2020-08-27] MEDS: METHYLPREDNISOLONE 125 MG INJ IV SCH ×2 (01:01→08:08)
[2020-08-27] MEDS: ALBUTEROL 2.5 MG/3 ML NEB SOL NEB SCH ×3 (02:00→13:40)
[2020-08-27] MEDS: IPRATROPIUM BROM 0.5MG/2.5ML NEB SCH ×3 (02:00→13:40)
[2020-08-27 06:58] LABS: Albumin 3.4 g/dL (3.4-5.0); Bilirubin Total 0.3 mg/dL (0.2-1.0); Magnesium 2.3 mg/dL (1.8-2.4); Protein, Total 7.6 g/dL (6.4-8.2)
[2020-08-27 07:32] LABS: Absolute Lymphocytes (CBC) 1.5 K/uL (0.7-4.9); Basophils % 0.9 % (0-1.3); Hematocrit 41.5 % (36.0-45.0); Lymphocytes % 11.9 % (15.3-44.8); MPV 7.9 fL (7.6-11.3); RBC Red Blood Cell Count 4.66 M/uL (3.86-4.86)
[2020-08-27 08:30] VITALS: TEMP 97.6
[2020-08-27] MEDS ORDERED: CEFTRIAXONE/SWI 1gm 1 GM/10 ML SYR IV SCH (09:00)
[2020-08-27] MEDS ORDERED: AZITHROMYCIN IV 500 MG in NA CHLORIDE 0.9% 250 ML IVPB SCH (09:00)
[2020-08-27] MEDS ORDERED: DULERA 100/5 (MOMETASONE/FORMOTEROL) INHALER IH SCH (09:00)
[2020-08-27] MEDS ORDERED: CEFTRIAXONE 1 GM/NS 50 ML 1 GM/50 ML BAG IV SCH (09:00)
[2020-08-27 09:17] LABS: White Blood Cell Scan 0 (OK)
[2020-08-27 09:18] LABS: Platelet Estimate INCR; Platelets, Giant PRESENT
[2020-08-27 09:19] LABS: Blood Morphology Comment NOT SEEN (NOT SEEN)
[2020-08-27 12:06] VITALS: BP 122/57
[2020-08-27] MEDS ORDERED: BENZONATATE 100 MG CAP PO PRN (12:53)
--- NOTE | 2020-08-27 13:19 | P.CNS ---
Date of Consult: 08/27/20 Primary Care Provider: Dianna Henao Chief Complaint: COPD exacerbation History of Present Illness: patient is 74 years of age with a history of hypertension presume COPD she quit smoking quite some time ago is been having progressive shortness of breath worse over the last month starting getting worse in the beginning of the year was informed that she may have had COPD still coughing has a little shortness of breath doing better Allergies hydrocodone [Hydrocodone] Adverse Reaction (Intermediate, Verified 07/19/11 06:25) Nausea/Vomiting Home Medications: Albuterol Sulfate [Proair Hfa] 2 puff IN Q4H PRN 03/02/19 Diphenhydramine [Benadryl*] 25 mg PO BEDTIME PRN 03/02/19 Levothyroxine Sodium 50 mcg PO 0900 03/02/19 Losartan/Hydrochlorothiazide [Losartan-Hctz 100-12.5 mg Tab] 1 tab PO DAILY 1 Simvastatin 40 mg PO DAILY 03/02/19 Temazepam 15 mg PO BEDTIME 03/02/19 - Past Medical/Surgical History Diabetic: No -: hypertension -: hypothyroid -: anxiety -: Suspected COPD -: tonsillectomy -: appendectomy -: ruptured spleen -: hysterectomy -: cyst removal from kidney -: left hand surgery Psychosocial/ Personal History: Patient retired, lives with family - Family History Father Notes: aortic aneurysm - Social History Smoking Status: Unknown if ever smoked Alcohol use: No CD- Drugs: No Caffeine use: Yes Place of Residence: Home Review of Systems 10-point ROS is otherwise unremarkable General: Weakness Respiratory: Cough, Shortness of Breath Physical Examination Temp Pulse Resp BP Pulse Ox 97.6 F 96 H 16 122/57 L 93 08/27/20 12:00 08/27/20 12:00 08/27/20 12:00 08/27/20 12:00 08/27/20 12:00 General: Alert, In no apparent distress, Oriented x3 Respiratory: Clear to auscultation bilaterally, Diminished Cardiovascular: No edema, Normal S1 S2 Gastrointestinal: Normal bowel sounds, Soft and benign Laboratory Data (last 24 hrs) 08/26/20 18:24: PT 10.5, INR 0.91 08/26/20 18:24: WBC 14.10 H, Hgb 12.7, Hct 38.7, Plt Count 532 H 08/26/20 18:24: Sodium 139, Potassium 4.0, BUN 21 H, Creatinine 1.02, Glucose 99, Magnesium 2.3 D, Total Bilirubin 0.3, AST 23, ALT 30, Alkaline Phosphatase 73 - Problems (1) COPD exacerbation Current Visit: Yes Status: Acute Plan: patient is 74 years of age former smoker as been complaining of progressive dyspnea since the beginning of this year former smoker I suspect that she has underlying COPD patient has mild ILD no evidence of pulmonary embolism no and evidence of any infection may have underlying diastolic dysfunction I suggest discharge on prednisone 10 mg twice a day for 10 days antibiotics are not necessary and a long-acting bronchodilator example Netta will follow up in my office to do outpatient pulmonary function testing patient does not qualify for home O2 labs reviewed stable for discharge
[2020-08-27 19:03] VITALS: O2SAT 94
--- NOTE | 2020-08-27 22:09 | P.DS ---
Admission Date: 08/26/20 Discharge Date: 08/27/20 Primary Care Provider: Dianna Henao Disposition: ROUTINE DISCHARGE Discharge Condition: GOOD Reason for Admission: COPD exacerbation Consultations: Pulm - Dr. Hopson Procedures: CXR (08/26): Bilateral lung base interstitial edema or infiltrate. CTA Chest (08/26): No pulmonary emboli identified. Mild interstitial prominence in each lung base. This could be mild edema or infiltrate. Problem List: acute COPD exacerbation, new diagnosis Hypertension CKD 3 Brief History of Present Illness: 74-year-old female with history of hypertension, suspected underlying COPD, CKD 3 presents emergency department for shortness of breath. Patient reports that she has had increasing shortness of breath over the course of the last month with significant dyspnea on exertion and resting shortness of breath. Initially upon presentation to the emergency department patient noted to have expiratory wheezing, was given albuterol/Solu-Medrol and had some improvement was still significantly short of breath. Chest x-ray demonstrates bilateral lung base interstitial edema versus infiltrate CT chest interstitial markings mildly prominent each lung base finding is minimal but could be mild edema or infiltrate no pleural effusion or pleural thickening, no PE. Lab significant for white blood cell count 14.1, patient has had splenectomy platelets 532 GFR 53 which is similar to patient's baseline, COVID negative. ED provider wishes to admit patient under observation for suspected COPD exacerbation. Patient has not been previously diagnosed with COPD but does have a 20 pack-year smoking history but quit many years prior. Hospital Course: Patient improved and did not require any oxygen during her hospitalization with treatment of COPD exacerbation. She was discharged home with a 10 day course of prednisone, advair, and to continue her home medications as previously prescribed. Pulmonology was consulted and recommended discontinuation of antibiotics due to no obvious infection seen on CT. f/u with Dr. Hopson (Pulm) in ~1-2 weeks. Will undergo formal PFTs Vital Signs/Physical Exam: Physical Exam General: Alert, In no apparent distress HEENT: Atraumatic, PERRLA, Mucous membr. moist/pink Neck: Supple, 2+ carotid pulse no bruit, No LAD Respiratory: Normal air movement, Diminished at bases, clear to auscultation bilaterally Cardiovascular: Regular rate/rhythm, Normal S1 S2 Gastrointestinal: Normal bowel sounds, No tenderness Musculoskeletal: No tenderness Integumentary: No rashes Neurological: Normal speech, Normal strength at 5/5 x4 extr, Normal tone, Normal affect Temp Pulse Resp BP Pulse Ox 97.6 F 96 H 16 122/57 L 93 08/27/20 12:00 08/27/20 12:00 08/27/20 12:00 08/27/20 12:00 08/27/20 12:00 Laboratory Data at Discharge: WBC 12.40 K/uL (4.3-10.9) H 08/27/20 06:14 Hgb 13.4 g/dL (12.0-15.0) 08/27/20 06:14 Hct 41.5 % (36.0-45.0) 08/27/20 06:14 Plt Count 540 K/uL (152-406) H 08/27/20 06:14 PT 10.5 SECONDS (9.5-12.5) 08/26/20 18:24 INR 0.91 08/26/20 18:24 Sodium 139 mmol/L (136-145) 08/27/20 06:14 Potassium 4.0 mmol/L (3.5-5.1) 08/27/20 06:14 BUN 19 mg/dL (7-18) H 08/27/20 06:14 Creatinine 0.90 mg/dL (0.55-1.3) 08/27/20 06:14 Glucose 158 mg/dL (74-106) H 08/27/20 06:14 Magnesium 2.3 mg/dL (1.8-2.4) 08/27/20 06:14 Total Bilirubin 0.3 mg/dL (0.2-1.0) 08/27/20 06:14 AST 19 U/L (15-37) 08/27/20 06:14 ALT 27 U/L (12-78) 08/27/20 06:14 Alkaline Phosphatase 67 U/L (45-117) 08/27/20 06:14 Home Medications: RX: Albuterol Sulfate [Proair Hfa] 2 puff IN Q4H PRN 03/02/19 RX: Diphenhydramine [Benadryl*] 25 mg PO BEDTIME PRN 03/02/19 RX: Levothyroxine Sodium 50 mcg PO 0900 03/02/19 RX: Losartan/Hydrochlorothiazide [Losartan-Hctz 100-12.5 mg Tab] 1 tab PO DAILY 03/02/19 RX: Simvastatin 40 mg PO DAILY 03/02/19 RX: Temazepam 15 mg PO BEDTIME 03/02/19 Fluticasone/Salmeterol [Advair 250-50 Diskus] 1 each IH BID 30 Days #1 blst.w.dev 08/27/20 RX: Benzonatate [Tessalon Perle*] 100 mg PO Q6H PRN 5 Days #20 cap 08/27/20 RX: predniSONE [Deltasone*] 10 mg PO BID 10 Days #20 tab 08/27/20 New Medications: Fluticasone/Salmeterol [Advair 250-50 Diskus] 1 each IH BID 30 Days #1 blst.w.dev RX: predniSONE [Deltasone*] 10 mg PO BID 10 Days #20 tab RX: Benzonatate [Tessalon Perle*] 100 mg PO Q6H PRN 5 Days #20 cap PRN Reason: Cough Physician Discharge Instructions: You were found to have a COPD exacerbation. He improved with steroids and nebulizers. Your CT scan did not reveal any infectious source/pneumonia. You are discharged home with a 10 day course of oral steroids and Advair (inhaler for COPD). Please continue your albuterol inhaler and other medications as previously prescribed. Please follow up with Dr. Hopson in the next 1-2 weeks. Diet: AHA Activity: Ad lee Followup: Josesito Hopson MD [ACTIVE - CAN ADMIT] - OOT,OOT [Primary Care Provider] -
== END 2020-08-27 14:58 | disposition home or self-care (01) ==
LOC: ER 16:15 → ERHOLD 22:53 → 2ND 23:54
PROVIDERS: ADMIT Hospitalist; ATTEND Hospitalist
DX: J44.1 Chronic obstructive pulmonary disease with (acute) exacerbation (principal); I12.9 Hypertensive chronic kidney disease with stage 1 through stage 4 chronic kidney disease, or unspecified chronic kidney disease; N18.30 Chronic kidney disease, stage 3 unspecified; E03.9 Hypothyroidism, unspecified; E78.5 Hyperlipidemia, unspecified; F41.9 Anxiety disorder, unspecified; F32.9 Major depressive disorder, single episode, unspecified; Z20.822 Contact with and (suspected) exposure to COVID-19; Z88.6 Allergy status to analgesic agent; Z90.81 Acquired absence of spleen; Z90.710 Acquired absence of both cervix and uterus
CPT/HCPCS: 96365; 93005; 85025 ×2; 80048; 36415; 83735 ×2; 85610; 80076; 81003; 84484; 80053; 84145; 83880; 71275; 71046; 94640; 96375; 99285; U0003; Q9967; J0456 ×2; J0696 ×2; J7050 ×2; J2930 ×2; J1720; G0378; J7606

== ENCOUNTER 2021-03-05 16:59 | Inpatient (IN) | payer OTHER ==
[2021-03-05] MEDS ORDERED: RSI MEDICATION KIT IV ONE (17:35)
[2021-03-05] MEDS ORDERED: NA CHLORIDE 0.9% 2,000 ML ONE (17:36)
[2021-03-05 17:37] LABS: Absolute Lymphocytes (CBC) 3.3 K/uL (0.7-4.9); Basophils % 1.1 % (0-1.3); Hematocrit 38.5 % (36.0-45.0); Lymphocytes % 20.7 % (15.3-44.8); MPV 7.2 fL (7.6-11.3); RBC Red Blood Cell Count 4.18 M/uL (3.86-4.86)
[2021-03-05 17:40] LABS: Protime INR 0.89
[2021-03-05 17:41] LABS: Urine Blood 2+ (Negative); Urine Glucose Negative (Negative); Urine Protein Negative (Negative)
[2021-03-05] MEDS ORDERED: FENTANYL CITR 100 MCG/2 ML ONE ×2 (17:56→22:05)
[2021-03-05 17:58] LABS: Barbiturates NEGATIVE (NEGATIVE); Benzodiazepines NEGATIVE (NEGATIVE); Cocaine NEGATIVE (NEGATIVE); METHAMPHETAM NEGATIVE (NEGATIVE); Methadone NEGATIVE (NEGATIVE); Opiates NEGATIVE (NEGATIVE); Phencyclidine NEGATIVE (NEGATIVE); THC Cannibis NEGATIVE (NEGATIVE)
[2021-03-05] MEDS ORDERED: MIDAZOLAM HCL 2 MG/2 ML INJ ONE (18:15)
[2021-03-05 18:18] LABS: ALT/SGPT 26 U/L (12-78); AST/SGOT 18 U/L (15-37); Albumin 3.4 g/dL (3.4-5.0); Alkaline Phosphatase 70 U/L (45-117); BUN Blood Urea Nitrogen 26 mg/dL (7-18); Bicarbonate 27 mmol/L (21-32); Bilirubin Direct < 0.1 mg/dL (0-0.2); Bilirubin Total 0.2 mg/dL (0.2-1.0); Glucose Level 122 mg/dL (74-106); Potassium 4.4 mmol/L (3.5-5.1); Protein, Total 7.3 g/dL (6.4-8.2); Sodium Level 141 mmol/L (136-145)
[2021-03-05] MEDS ORDERED: NOREPINEPHRINE 4mg/D5W 250mL 4 MG/250 ML BAG IV ONE (18:18)
[2021-03-05] MEDS ORDERED: propofoL 1,000 MG/100 ML VIAL IV ONE ×2 (18:18→22:41)
--- NOTE | 2021-03-05 18:19 | RAD REPORT ---
EXAM DESCRIPTION: RAD - Chest Single View - 03/05/2021 6:10 pm CLINICAL HISTORY: post intubation Chest pain. COMPARISON: Chest Pa And Lat (2 Views) dated 08/26/2020; Chest Single View dated 03/02/2019; Chest Pa A nd Lat (2 Views) dated 11/05/2018; Chest Single View dated 11/21/2017 FINDINGS: Portable technique limits examination quality. Tip of the endotracheal tube is at the level of the superior margin of the aortic arch, considered pr operly placed. Enteric tube descends in the stomach. Mild bilateral interstitial opacities, greatest on the left in the left lung base likely indicates infection/pneumonia.The heart is upper limit grey l size.
[2021-03-05 18:25] LABS: Arterial Blood Carboxyhemoglob 1.2 % (0-1.5); Blood O2 Saturation 97.2 % (92-98.5)
--- NOTE | 2021-03-05 18:38 | ER ---
Nurse's Notes [facility] Name: Lupis Puga Age: 75 yrs Sex: Female : 1945 Arrival Date: 03/05/2021 Time: 16:59 Bed 6 Private MD: Diagnosis: Suicide attempt;Altered mental status, unspecified;Adverse effect of other antiepileptic and sedative-hypnotic drugs, initial encounter;Pneumonia, unspecified organism Presentation: 03/05 17:00 Chief complaint: EMS states: Possible suicidal attempt/ overdose. Daughter reported to EMS that patient threatened to take her sleeping pills. EMS reports they administered Narcan 2mg IVP with no change. Ebola Screen: Unable to complete the Ebola screening because:. Onset of symptoms is unknown. 17:00 Method Of Arrival: EMS: [facility] 17:00 Acuity: OLIVIA 1 17:00 Chief complaint: EMS states: called out by pt's daughter who stated that her mother sv called her and stated she was feeling suicidal. She called EMS, pt found to be responsive to painful stimuli. Onset of symptoms is unknown. 17:00 Method Of Arrival: EMS: [facility] 17:00 Acuity: OLIVIA 1 17:00 Coronavirus screen: At this time, unable to obtain information related to travel sv outside the [place] Initial Sepsis Screen: Does the patient meet any 2 criteria? Temp <36.0*C (96.8*F)) or > 38.3*C (100.9*F). Altered Mental Status. Yes Does the patient have a suspected source of infection? No. Patient's initial sepsis screen is negative. Risk Assessment: Do you want to hurt yourself or someone else? Unable to obtain. Triage Assessment: 17:00 General: Appears obese, well developed, Behavior is uncooperative, unresponsive. Pain: sv Unable to use pain scale. Does not appear to understand pain scale. FLACC scale score is 0 out of 10. Patient is unresponsive. Neuro: Level of Consciousness is unresponsive, Oriented to none. Cardiovascular: Patient's skin is warm and dry. Rhythm is sinus tachycardia. Respiratory: Respiratory effort is even, unlabored, Respiratory pattern is symmetrical. Derm: Skin is normal. Historical: - Allergies: 17:44 hydrocodone; sv - PMHx: 17:44 COPD; Hyperlipidemia; Hypertension; kidney Disease Stage III; Depression; sv - Immunization history:: Adult Immunizations unknown. - Social history:: Smoking status: unknown. - History obtained from: EMS. - Unable to obtain history due to: altered mental status, unresponsive. Screenin:04 Abuse screen: unable to complete. Nutritional screening: unable to complete . sv Tuberculosis screening: unable to complete . Fall Risk No fall in past 12 months (0 pts). Secondary diagnosis (15 points) AMS. IV access (20 points). Ambulatory Aid- None/Bed Rest/Nurse Assist (0 pts). Gait- Normal/Bed Rest/Wheelchair (0 pts) Mental Status- Overestimates/Forgets Limitations (15 pts.). Total Schumacher Fall Scale indicates High Risk Score (45 or more points). Fall prevention measures have been instituted. Side Rails Up X 2 Placed Close to Nursing Station Frequent Obs/Assessments Occuring. Assessment: 18:03 General: Appears in no apparent distress. Behavior is intubated and sedated. Neuro: sv Level of Consciousness is Intubated and sedated. Cardiovascular: Rhythm is sinus bradycardia. Respiratory: Ventilator assessment: ET Tube: 7.5 23 cm at gum line. Ventilator Mode: Assist Control (AC) Tidal Volume: 540 Respiratory Rate: 16 FiO2: 35% HOB > 30 degrees. Patient repositioned to supine position. 18:40 Reassessment: Patient appears in no apparent distress at this time. No changes from sv previously documented assessment. Pt remains intubated and sedated. 20:22 Reassessment: Daughter [id number]. ea Vital Signs: 17:17 BP 71 / 49; Pulse 94; Resp 14; Temp 96.1(TE); Pulse Ox 96% on Non-rebreather mask; ss 17:24 BP 89 / 62; Pulse 77; ss 17:30 BP 105 / 92; Pulse 81; Resp 15; Pulse Ox 98% ; sv 17:47 BP 93 / 65; Pulse 62; Resp 18; Pulse Ox 100% ; sv 17:58 Weight 115 kg; sv 18:00 BP 169 / 81; Pulse 56; Resp 16; Pulse Ox 100% on 30% FiO2 ETT vent; hb 18:15 BP 152 / 80; Pulse 55; Resp 17; Pulse Ox 100% on 35% FiO2 ETT vent; sv 18:30 BP 158 / 82; Pulse 55; Resp 16; Pulse Ox 100% on 35% FiO2 ETT vent; sv 18:45 BP 143 / 72; Pulse 58; Resp 16; Pulse Ox 99% on R/A; hb Maxwell Coma Score: 17:00 Eye Response: to pain(2). Verbal Response: incomprehensible(2). Motor Response: rn localizes pain(5). Total: 9. 17:38 Eye Response: none(1). Verbal Response: none(1). Motor Response: withdraws from rn pain(4). Total: 6. ED Course: 16:59 Patient arrived in ED. rn 16:59 Regan Zavala MD is Attending Physician. rn 17:18 Assisted provider with intubation using 7.5 mm ETT via oral route. ET tube secured at ss 23cm at the gums. Set up intubation tray. Intubated by Regan Zavala MD Placement verified by CO2 detector w/ + color change, auscultating bilateral breath sounds, Patient tolerated IS sedated. Tolerated well. 17:20 Patient has correct armband on for positive identification. Bed in low position. Side sv rails up X2. ekg monitor tech on. Pulse ox on. NIBP on. Head of bed elevated. 17:20 Arm band placed on. sv 17:43 Kelly cath inserted, using sterile technique, 16 Fr., by ED staff, balloon inflated, to sv gravity drainage, urine specimen collected. returned clear yellow urine. Patient tolerated well. 17:46 CBC with Diff Sent. sv 17:46 Acetaminophen Sent. sv 17:46 Basic Metabolic Panel Sent. sv 17:55 Triage completed. ss 18:10 CXR XRAY In Process Unspecified. EDMS 18:36 Joseph Cooney MD is Hospitalizing Provider. rn 03/06 08:33 Edy Silverman, RN is Primary Nurse. 5 03/07 20:04 Primary Nurse role handed off by Edy Silverman, RN tt3 Administered Medications: 03/05 17:10 Drug: NS 0.9% 1000 ml Route: IV; Rate: 1000 ml; Site: right antecubital; ss 17:18 Drug: Etomidate 20 mg Route: IVP; Site: right antecubital; ss 17:59 Follow up: Response: No adverse reaction sv 17:18 Drug: Succinylcholine 120 mg Route: IVP; Site: right antecubital; ss 17:59 Follow up: Response: No adverse reaction sv 17:30 Drug: fentaNYL (PF) 100 mcg Route: IVP; Site: right femoral; sv 17:59 Follow up: Response: No adverse reaction sv 17:52 Drug: Versed (midazolam) 2 mg Route: IVP; Site: right femoral; sv 17:58 Drug: Propofol 5 mcg/kg/min Route: IV; Rate: calculated rate; Site: right femoral; sv 20:03 Follow up: Response: No adverse reaction; IV Status: Infusion continued upon admission jb4 17:58 Drug: Levophed (norepinephrine) (4 mg/250 mL D5W 4 mcg/min {Note: started at 5mcg/ml.} sv Route: IV; Rate: calculated rate; Site: right femoral; 20:03 Follow up: Response: No adverse reaction; IV Status: Infusion continued upon admission jb4 18:45 Drug: Zosyn (piperacillin-tazobactam) 3.375 grams Route: IVPB; Infused Over: 60 mins; sv Site: right femoral; 19:45 Follow up: Response: No adverse reaction; IV Status: Completed infusion; IV Intake: jb4 100ml Intake: 19:45 IV: 100ml; Total: 100ml. jb4 Ventilator: 18:00 Fi02: 35%; Rate: 16min; T.V.: 540ml; Peep: 0cm; Mode: CMV; ET tube: 7.5 fr (Oral); sv Outcome: 18:37 Decision to Hospitalize by Provider. suman 03/08 16:53 Patient left the ED. iw Signatures: Dispatcher [employer] Elina Au RN RN Yahaira Burden RN RN Regan Zavala MD MD rn Smirch, Shelby, RN RN Desire Stark RN RN hb Bryson, James, RN RN jb4 Flora Farah RN RN ea Trim, Tyler 3 Edy Silverman RN RN ch5 Corrections: (The following items were deleted from the chart) 03/05 17:59 17:00 Chief complaint: EMS states: Possible suicidal attempt/ overdose. Daughter ss reported to EMS that patient threatened to take her sleeping pills. ss
--- NOTE | 2021-03-05 18:38 | EDPHYS ---
Physician Documentation [facility] Name: Lupis Puga Age: 75 yrs Sex: Female : 1945 Arrival Date: 03/05/2021 Time: 16:59 Bed 6 Private MD: ED Physician Regan Zavala HPI: 03/05 17:06 This 75 yrs old Female presents to ER via Unassigned with complaints of rn Altered mental status, suicide attempt. 17:06 The patient presents with decreased responsiveness. Onset: The symptoms/episode rn began/occurred at an unknown time. Possible causes: drug use, alcohol, Sedatives. Current symptoms: In the emergency department the patient's symptoms are unchanged from the initial presentation. The patient has experienced a previous episode. It is unknown whether or not the patient has recently seen a physician. Patient brought in by EMS, police responded to a call for suicidal ideations and possible overdose. Patient had told police and family that she took sleep medication and sedatives in order to kill herself. EMS reports initially more alert but decreasing mental status. Given 2 mg of Narcan without improvement. Patient has attempted suicide in the past with Ambien and alcohol overdose. No pills found near or around patient. No unable to tell exactly what she could have taken. Historical: - Allergies: 17:44 hydrocodone; sv - PMHx: 17:44 COPD; Hyperlipidemia; Hypertension; kidney Disease Stage III; Depression; sv - Immunization history:: Adult Immunizations unknown. - Social history:: Smoking status: unknown. - History obtained from: EMS. - Unable to obtain history due to: altered mental status, unresponsive. ROS: 17:06 Unable to obtain ROS due to altered mental status. rn Exam: 17:06 Constitutional: Overweight female, decreased responsiveness rn 17:33 ECG was reviewed by the Attending Physician. rn Vital Signs: 17:17 BP 71 / 49; Pulse 94; Resp 14; Temp 96.1(TE); Pulse Ox 96% on Non-rebreather mask; ss 17:24 BP 89 / 62; Pulse 77; ss 17:30 BP 105 / 92; Pulse 81; Resp 15; Pulse Ox 98% ; sv 17:47 BP 93 / 65; Pulse 62; Resp 18; Pulse Ox 100% ; sv 17:58 Weight 115 kg; sv 18:00 BP 169 / 81; Pulse 56; Resp 16; Pulse Ox 100% on 30% FiO2 ETT vent; hb 18:15 BP 152 / 80; Pulse 55; Resp 17; Pulse Ox 100% on 35% FiO2 ETT vent; sv 18:30 BP 158 / 82; Pulse 55; Resp 16; Pulse Ox 100% on 35% FiO2 ETT vent; sv 18:45 BP 143 / 72; Pulse 58; Resp 16; Pulse Ox 99% on R/A; hb Maxwell Coma Score: 17:00 Eye Response: to pain(2). Verbal Response: incomprehensible(2). Motor Response: rn localizes pain(5). Total: 9. 17:38 Eye Response: none(1). Verbal Response: none(1). Motor Response: withdraws from rn pain(4). Total: 6. Ventilator: 18:00 Fi02: 35%; Rate: 16min; T.V.: 540ml; Peep: 0cm; Mode: CMV; ET tube: 7.5 fr (Oral); sv Procedures: 17:34 Intubation: Ventilated with 100% NRB prior to procedure. O2 saturation prior to infusion rn was 90 %. Intubated orally using # 4 Jordan blade with 7.5 mm ETT. was successful on first attempt. Ventilated with Ambu bag. Tube secured at right side of mouth measured 23 cm at gum. Placement verified by CO2 detector with (+) color change, auscultating bilateral breath sounds, O2 saturation after procedure was 96 %. Patient tolerated well. Central Line: the site was prepped with Betadine, in sterile fashion, a triple lumen catheter was inserted, in the right femoral vein, in 1 attempts. placement was verified, by blood return, the site was dressed with Tegaderm, using sterile technique, the patient tolerated the procedure, well. MDM: 17:00 Patient medically screened. rn 17:31 ED course: Patient presented with GCS of 8 or 9, quickly decompensated to a GCS 6 or 7. rn Decision made to emergently intubate. Patient was hypotensive and hypoxic. Intubated without complication then central line placed.. 17:42 Test interpretation: by ED physician or midlevel provider:. rn 17:42 Differential Diagnosis: electrolyte abnormality, overdose, volume depletion, SI. Data rn reviewed: vital signs, nurses notes. Test interpretation: by ED physician or midlevel provider: ABG: pH 7.33, pCO2 48.7, pO2 110, HCO3 25; grossly normal ABG. 18:36 Counseling: I had a detailed discussion with the patient and/or guardian regarding: the rn historical points, exam findings, and any diagnostic results supporting the discharge/admit diagnosis, lab results, radiology results, the need for further work-up and treatment in the hospital. Response to treatment: the patient's symptoms have mildly improved after treatment, and as a result, I will admit patient. Admission orders: after a detailed discussion of the patient's condition and case, the admit orders are written by me. 03/05 17:01 Order name: Acetaminophen rn 03/05 17: Order name: Basic Metabolic Panel rn 03/05 17: Order name: CBC with Diff rn 03/05 17: Order name: ETOH Level; Complete Time: 18:38 03/05 17:01 Order name: Hepatic Function; Complete Time: 18:38 03/05 17:01 Order name: PT-INR; Complete Time: 17:53 03/05 17: Order name: Ptt, Activated; Complete Time: 17:53 03/05 17:01 Order name: Salicylate; Complete Time: 18:20 rn 03/05 17:01 Order name: Urine Drug Screen; Complete Time: 18:09 rn 03/05 17:01 Order name: Acetaminophen Level; Complete Time: 18:38 EDDC 03/05 17:01 Order name: Basic Metabolic Panel; Complete Time: 18:38 EDDC 03/05 17:01 Order name: CBC with Automated Diff; Complete Time: 17:53 EDDC 03/05 17:03 Order name: ABG; Complete Time: 18:38 rn 03/05 17:29 Order name: SARS-COV-2 RT PCR; Complete Time: 18:38 EDDC 03/05 17:41 Order name: Urine Dipstick-Ancillary; Complete Time: 17:53 EDDC 03/06 05:29 Order name: CBC with Automated Diff EDMS 03/06 05:59 Order name: Comprehensive Metabolic Panel EDMS 03/06 05:59 Order name: Phosphorus EDMS 03/06 05:59 Order name: Lipid Profile EDMS 03/06 05:59 Order name: T4 Free EDMS 03/06 05:59 Order name: Magnesium EDMS 03/06 05:59 Order name: Thyroid Stimulating Hormone EDMS 03/06 17:02 Order name: Phosphorus EDMS 03/06 17:02 Order name: Magnesium EDMS 03/07 04:38 Order name: CBC with Automated Diff EDMS 03/07 04:51 Order name: Comprehensive Metabolic Panel EDMS 03/08 05:10 Order name: CBC with Automated Diff EDMS 03/08 05:21 Order name: Comprehensive Metabolic Panel EDMS 03/08 05:21 Order name: Magnesium EDMS 03/05 17:01 Order name: EKG; Complete Time: 17:02 rn 03/05 17:01 Order name: EKG - Nurse/Tech; Complete Time: 17:46 rn 03/05 17:01 Order name: IV Saline Lock; Complete Time: 17:47 rn 03/05 17:01 Order name: Labs collected and sent; Complete Time: 17:46 rn 03/05 17:01 Order name: Urine Dipstick-Ancillary (obtain specimen); Complete Time: 17:47 rn 03/05 17:03 Order name: O2 Per Protocol; Complete Time: 17:46 rn 03/05 17:37 Order name: CXR XRAY; Complete Time: 18:20 eb 03/05 17:38 Order name: Kelly; Complete Time: 17:47 rn 03/05 17:38 Order name: NG Tube; Complete Time: 17:47 rn 03/05 19:04 Order name: CONS Physician Consult EDMS 03/07 13:28 Order name: RAD EDMS 03/08 09:29 Order name: Potassium EDMS EC:33 Rate is 98 beats/min. Rhythm is regular. QRS Colt is Normal. ID interval is normal. QT rn interval is normal. No Q waves. T waves are Normal. No ST changes noted. Clinical impression: NSR w/ Non-specific ST/T Changes. Interpreted by me. Reviewed by me. Administered Medications: 17:10 Drug: NS 0.9% 1000 ml Route: IV; Rate: 1000 ml; Site: right antecubital; ss 17:18 Drug: Etomidate 20 mg Route: IVP; Site: right antecubital; ss 17:59 Follow up: Response: No adverse reaction sv 17:18 Drug: Succinylcholine 120 mg Route: IVP; Site: right antecubital; ss 17:59 Follow up: Response: No adverse reaction sv 17:30 Drug: fentaNYL (PF) 100 mcg Route: IVP; Site: right femoral; sv 17:59 Follow up: Response: No adverse reaction sv 17:52 Drug: Versed (midazolam) 2 mg Route: IVP; Site: right femoral; sv 17:58 Drug: Propofol 5 mcg/kg/min Route: IV; Rate: calculated rate; Site: right femoral; sv 20:03 Follow up: Response: No adverse reaction; IV Status: Infusion continued upon admission jb4 17:58 Drug: Levophed (norepinephrine) (4 mg/250 mL D5W 4 mcg/min {Note: started at 5mcg/ml.} sv Route: IV; Rate: calculated rate; Site: right femoral; 20:03 Follow up: Response: No adverse reaction; IV Status: Infusion continued upon admission jb4 18:45 Drug: Zosyn (piperacillin-tazobactam) 3.375 grams Route: IVPB; Infused Over: 60 mins; sv Site: right femoral; 19:45 Follow up: Response: No adverse reaction; IV Status: Completed infusion; IV Intake: jb4 100ml Disposition: 18:36 Critical Care:. rn Disposition Summary: 03/05/21 18:37 Hospitalization Ordered Hospitalization Status: Inpatient Admission rn Provider: Joseph Cooney rn Condition: Fair rn Problem: new rn Symptoms: have improved rn Bed/Room Type: Standard rn Location: [facility] ER HOLD(03/05/21 19:21) Room Assignment: ERHOLD-(03/05/21 19:21) mw Diagnosis - Suicide attempt rn - Altered mental status, unspecified rn - Adverse effect of other antiepileptic and sedative-hypnotic drugs, initial encounterrn - Pneumonia, unspecified organism rn Forms: - Medication Reconciliation Form rn - SBAR form machine learning intern time excluding procedures: 18:36 Critical care time: Bedside Care: 35 minutes. Total time: 35 minutes rn Addendum: 03/11/2021 05:07 Addendum: Physical exam: Gen: Pt sedated, only responds to painful stimuli. Neuro: r n Sedated, moves all 4 extremities to painful stimuli, no spont speech. Cardiac: bradycardic, regular, no pulse deficits. Resp: clear bilateral breath sounds. Abd: no abd distension or tenderness. EXT: no cyanosis, FROM. Skin: no cyanosis, no signs of cellulitis. ENT: no oral laceration or swelling. EYES: no nystagmus. . Signatures: Dispatcher [employer] EDDC Elina Talamantes RN Ilana Lezama RN Regan Beyer MD MD rn Smirch, Shelby, RN RN Nate Benavides RN jb4 Corrections: (The following items were deleted from the chart) 03/05 17:07 17:06 Patient brought in by EMS, police responded to a call for suicidal ideations and rn possible overdose. Patient had told police and family that she took sleep medication and sedatives in order to kill herself. EMS reports initially more alert but decreasing mental status. Given 2 mg of Narcan without improvement. Patient has attempted suicide in the past with Ambien and alcohol overdose.. rn 17:29 17:21 CORONAVIRUS+MR.LAB.BRZ ordered. [facility] EDDC 19:21 18:37 Intensive Care Unit rn elina 19:21 18:37 suman antoine
[2021-03-05] MEDS ORDERED: NA CHLORIDE 0.9% 100 ML ONE (18:49)
[2021-03-05] MEDS ORDERED: PIPERACIL/TAZO 3.375 GM VIAL IV ONE (18:50)
[2021-03-05 19:37] VITALS: BMI 38.6
[2021-03-05] MEDS ORDERED: ONDANSETRON 4 MG/2 ML VIAL IV PRN (19:38)
[2021-03-05] MEDS ORDERED: NA CHLORIDE 0.9% 250 ML IV PRN (19:38)
--- NOTE | 2021-03-05 19:38 | P.HP ---
Certification for Inpatient Patient admitted to: Inpatient With expected LOS: >2 Midnights Patient will require the following post-hospital care: None Practitioner: I am a practitioner with admitting privileges, knowledge of patient current condition, hospital course, and medical plan of care. Services: Services provided to patient in accordance with Admission requirements found in Title 42 Section 412.3 of the Code of Federal Regulations Patient History Date of Service: 03/05/21 Reason for admission: suicide attempt History of Present Illness: Ms. Puga is a 75 yo F with anxiety and depression, hypertension, hypothyroidism and copd who was brought in by EMS for suicide attempt and overdose. Patient told police that she took sleeping medications and sedatives in order to kill herself. EMS reports she was initially more alert but had a progressive decrease in mental status. She was given 2mg of Narcan by EMS without improvement. Patient has attempted suicide in the past with ambien and alcohol. EMS did not find pills near or around the patient upon arrival so unknown exactly what she took. Patient presented with a GCS of 8 or 9 which decreased to 6 or 7 so ER physician intubated the patient and placed a central line. She was also hypotensive and hypoxic and was initially started on levophed and propofol. WBC 16.2. BUN 26, Cr 1.34, GFR 39. Alcohol 317. CXR FINDINGS: Portable technique limits examination quality. Tip of the endotracheal tube is at the level of the superior margin of the aortic arch, considered properly placed. Enteric tube descends in the stomach. Mild bilateral interstitial opacities, greatest on the left in the left lung base likely indicates infection/pneumonia.The heart is upper limit normal size. Allergies hydrocodone [Hydrocodone] Adverse Reaction (Intermediate, Verified 07/19/11 06:25) Nausea/Vomiting Home Medications: Albuterol Sulfate [Proair Hfa] 2 puff IN Q4H PRN 03/02/19 Diphenhydramine [Benadryl*] 25 mg PO BEDTIME PRN 03/02/19 Levothyroxine Sodium 50 mcg PO 0900 03/02/19 Losartan/Hydrochlorothiazide [Losartan-Hctz 100-12.5 mg Tab] 1 tab PO DAILY 03/02/19 Simvastatin 40 mg PO DAILY 03/02/19 Temazepam 15 mg PO BEDTIME 03/02/19 Benzonatate [Tessalon Perle*] 100 mg PO Q6H PRN 5 Days #20 cap 08/27/20 Fluticasone/Salmeterol [Advair 250-50 Diskus] 1 each IH BID 30 Days #1 blst.w.dev 08/27/20 predniSONE [Deltasone*] 10 mg PO BID 10 Days #20 tab 08/27/20 - Past Medical/Surgical History Diabetic: No -: hypertension -: hypothyroid -: anxiety -: Suspected COPD -: tonsillectomy -: appendectomy -: ruptured spleen -: hysterectomy -: cyst removal from kidney -: left hand surgery Psychosocial/ Personal History: Patient retired, lives with family - Family History Father Notes: aortic aneurysm - Social History Smoking Status: Unknown if ever smoked Alcohol use: Yes CD- Drugs: Yes Caffeine use: Yes Place of Residence: Home Review of Systems is unable to be obtained Physical Examination - Physical Exam General: Comatose, Obese HEENT: Atraumatic, PERRLA, Mucous membr. moist/pink, Sclerae nonicteric Neck: Supple, 2+ carotid pulse no bruit, No LAD, Without JVD or thyroid abnormality Respiratory: Normal air movement Cardiovascular: No edema, Regular rate/rhythm, Normal S1 S2, No gallops, No rubs, No murmurs Gastrointestinal: Normal bowel sounds, No tenderness Musculoskeletal: No tenderness Integumentary: No rashes Neurological: Other (intubated and sedated) Lymphatics: No axilla or inguinal lymphadenopathy Urinary: Kelly catheter - Studies Laboratory Data (last 24 hrs) 03/05/21 17:06: PT 10.2, INR 0.89, APTT 33.0 03/05/21 17:06: WBC 16.20 H, Hgb 12.5, Hct 38.5, Plt Count 512 H 03/05/21 17:06: Sodium 141, Potassium 4.4, BUN 26 H, Creatinine 1.34 H, Glucose 122 H, Total Bilirubin 0.2, AST 18, ALT 26, Alkaline Phosphatase 70 Assessment and Plan - Problems (Diagnosis) (1) COPD (chronic obstructive pulmonary disease) Current Visit: Yes Status: Chronic Qualifiers: COPD type: unspecified COPD Qualified Code(s): J44.9 - Chronic obstructive pulmonary disease, unspecified (2) Aspiration pneumonia Current Visit: Yes Status: Acute Qualifiers: Aspiration pneumonia type: unspecified Laterality: unspecified laterality Lung location: unspecified part of lung Qualified Code(s): J69.0 - Pneumonitis due to inhalation of food and vomit (3) Drug overdose Current Visit: Yes Status: Acute Qualifiers: Encounter type: initial encounter Injury intent: intentional self-harm Qualified Code(s): T50.902A - Poisoning by unspecified drugs, medicaments and biological substances, intentional self-harm, initial encounter (4) Suicide attempt Current Visit: Yes Status: Acute (5) Alcohol intoxication Current Visit: Yes Status: Acute Qualifiers: Complication of substance-induced condition: with unspecified complication Qualified Code(s): F10.929 - Alcohol use, unspecified with intoxication, unspecified (6) Depression Current Visit: No Status: Chronic Qualifiers: Depression Type: major depressive disorder Major depression recurrence: unspecified whether recurrent Active/Remission status: remission status unspecified Qualified Code(s): F32.9 - Major depressive disorder, single episode, unspecified (7) Hyperlipidemia Current Visit: No Status: Chronic Qualifiers: Hyperlipidemia type: unspecified Qualified Code(s): E78.5 - Hyperlipidemia, unspecified (8) Hypertension Onset Date: 11/22/17 Current Visit: No Status: Chronic Qualifiers: Hypertension type: essential hypertension Qualified Code(s): I10 - Essential (primary) hypertension (9) Acute kidney injury Current Visit: No Status: Acute - Plan pulm consulted, RT Consulted continue mechanical ventilation, propofol and pressors as needed, goal is to wean off continue IVF hydration and IV antibiotics UA pending, blood cultures collected will likely need to go to [facility] will reconcile and continue home medications DVT ppx Discharge Plan: Home Plan to discharge in: 72 Hours - Advance Directives Does patient have a Living Will: No Does patient have a Durable POA for Healthcare: No - Code Status/Comfort Care Code Status Assessed: Yes (full code ) Critical Care: Yes Time Spent Managing Pts Care (In Minutes): 70
[2021-03-05] MEDS: PIPER TAZO 3.375 GM in NA CHLORIDE 0.9% 100 ML IV SCH (19:45)
[2021-03-05] MEDS ORDERED: propofoL 1,000 MG/100 ML VIAL IV SCH (20:00)
[2021-03-05] MEDS: D5 0.45 NS 1,000 ML IV SCH (20:00)
[2021-03-05] MEDS ORDERED: FAMOTIDINE 20 MG/2 ML VIAL IV ONE (20:20)
[2021-03-05] MEDS ORDERED: D5 0.45 NS 1,000 ML IV ONE (20:21)
[2021-03-05] MEDS: FAMOTIDINE 20 MG/2 ML VIAL IV SCH (21:00)
[2021-03-05] MEDS: FENTANYL CITR 100 MCG/2 ML IV PRN (21:43)
[2021-03-05] MEDS ORDERED: NOREPINEPHRINE 4 MG in D5W 250 ML IV SCH (22:00)
[2021-03-06] MEDS: HEPARIN 5000 UNIT/ML 1 ML VIAL SQ SCH ×3 (01:00→17:00)
[2021-03-06] MEDS: PIPER TAZO 3.375 GM in NA CHLORIDE 0.9% 100 ML IV SCH ×3 (02:00→17:00)
[2021-03-06] MEDS ORDERED: PIPERACIL/TAZO 3.375 GM VIAL IV ONE ×3 (02:14→17:40)
[2021-03-06] MEDS ORDERED: NA CHLORIDE 0.9% 100 ML ONE ×4 (02:14→17:40)
[2021-03-06] MEDS ORDERED: HEPARIN 5000 UNIT/ML 1 ML VIAL ONE ×3 (02:14→17:40)
[2021-03-06] MEDS ORDERED: propofoL 1,000 MG/100 ML VIAL IV ONE ×4 (03:00→10:33)
[2021-03-06 05:26] LABS: Absolute Lymphocytes (CBC) 4.4 K/uL (0.7-4.9); Basophils % 1.2 % (0-1.3); Hematocrit 35.2 % (36.0-45.0); Lymphocytes % 32.7 % (15.3-44.8); MPV 6.7 fL (7.6-11.3); RBC Red Blood Cell Count 3.86 M/uL (3.86-4.86)
[2021-03-06 05:55] LABS: Albumin 2.9 g/dL (3.4-5.0); Bilirubin Total 0.2 mg/dL (0.2-1.0); Phosphorus 3.1 mg/dL (2.5-4.9); Potassium 3.1 mmol/L (3.5-5.1); Protein, Total 6.3 g/dL (6.4-8.2); Thyroid Stimulating Hormone 1.13 uIU/mL (0.360-3.740)
[2021-03-06] MEDS: D5 0.45 NS 1,000 ML IV SCH ×2 (06:00→16:00)
[2021-03-06] MEDS ORDERED: D5 0.45 NS 1,000 ML IV ONE ×2 (06:14→16:46)
[2021-03-06] MEDS: FENTANYL CITR 100 MCG/2 ML IV PRN ×3 (06:28→17:13)
[2021-03-06] MEDS ORDERED: FENTANYL CITR 100 MCG/2 ML ONE ×3 (06:52→17:19)
[2021-03-06] MEDS ORDERED: MIDAZOLAM HCL 2 MG/2 ML INJ IV ONE (07:29)
[2021-03-06] MEDS ORDERED: MIDAZOLAM HCL 2 MG/2 ML INJ ONE (07:44)
[2021-03-06] MEDS ORDERED: HYDROMORPHONE HCL 1 MG/ML INJ IV ONE (08:29)
[2021-03-06] MEDS ORDERED: HYDROMORPHONE HCL 1 MG/ML INJ ONE (08:49)
[2021-03-06] MEDS: KCL 20 MEQ/100 mL IVPB 20 MEQ/100 ML BAG IV SCH ×2 (09:00→11:00)
[2021-03-06] MEDS: FAMOTIDINE 20 MG/2 ML VIAL IV SCH ×2 (09:00→19:52)
[2021-03-06] MEDS ORDERED: FAMOTIDINE 20 MG/2 ML VIAL IV ONE ×2 (09:15→20:14)
[2021-03-06] MEDS ORDERED: KCL 20 MEQ/100 mL IVPB 20 MEQ/100 ML BAG IV ONE ×2 (09:15→12:03)
[2021-03-06] MEDS ORDERED: ETOMIDATE 20 MG/10 ML VIAL IV ONE (09:36)
[2021-03-06] MEDS ORDERED: SUCCINYLCHOLINE 20 MG/ML (10 ML) IV ONE (09:36)
--- NOTE | 2021-03-06 16:00 | P.PN ---
Subjective Date of Service: 03/06/21 Chief Complaint: suicide attempt Patient intubated, sedated and on mechanical ventilation. She has easy arousable. Physical Examination - Vital Signs Temperature: 97.4 F Blood Pressure: 114/63 Pulse: 102 Respirations: 20 Pulse Ox (%): 98 - Physical Exam General: Other (Sedated) HEENT: Other (ET tube) Neck: JVD not distended Respiratory: Clear to auscultation bilaterally, Normal air movement Cardiovascular: No edema, Normal S1 S2, Other (Tachycardia) Gastrointestinal: Normal bowel sounds, Soft and benign, Non-distended, No tenderness Musculoskeletal: No swelling Integumentary: No rashes Neurological: Normal strength at 5/5 x4 extr - Studies Laboratory Data (last 24 hrs) 03/05/21 17:06: PT 10.2, INR 0.89, APTT 33.0 03/05/21 17:06: WBC 16.20 H, Hgb 12.5, Hct 38.5, Plt Count 512 H 03/05/21 17:06: Sodium 141, Potassium 4.4, BUN 26 H, Creatinine 1.34 H, Glucose 122 H, Total Bilirubin 0.2, AST 18, ALT 26, Alkaline Phosphatase 70 Assessment And Plan - Current Problems (Diagnosis) (1) Alcohol intoxication Current Visit: Yes Status: Acute Qualifiers: Complication of substance-induced condition: with unspecified complication Qualified Code(s): F10.929 - Alcohol use, unspecified with intoxication, unspecified (2) Suicide attempt Current Visit: Yes Status: Acute (3) COPD (chronic obstructive pulmonary disease) Current Visit: Yes Status: Chronic Qualifiers: COPD type: unspecified COPD Qualified Code(s): J44.9 - Chronic obstructive pulmonary disease, unspecified (4) Acute metabolic encephalopathy Current Visit: Yes Status: Acute (5) Aspiration pneumonia Current Visit: Yes Status: Acute Qualifiers: Aspiration pneumonia type: unspecified Laterality: unspecified laterality Lung location: unspecified part of lung Qualified Code(s): J69.0 - Pneumonitis due to inhalation of food and vomit (6) Hypovolemic shock Current Visit: Yes Status: Acute - Plan Patient extubated. Hypovolemic shock resolved. Patient is currently normotensive. Oxygen therapy as needed. Monitor for alcohol withdrawal symptoms. Ativan IV p.r.n. Diet as tolerated. Continue IV antibiotics for possible aspiration pneumonia. Psychiatric consult. Replete electrolytes-potassium replacement. Monitor CBC and blood chemistry.
[2021-03-06] MEDS ORDERED: FLUMAZENIL 0.1 MG/ML (5 mL VIAL) IV PRN (16:01)
[2021-03-06] MEDS ORDERED: LORazepam 2 MG/ML VIAL IV PRN (16:01)
[2021-03-06] MEDS: ACETAMINOPHEN 500 MG TAB PO PRN ×2 (16:30→20:43)
[2021-03-06 17:01] LABS: Magnesium 1.9 mg/dL (1.8-2.4); Phosphorus 2.7 mg/dL (2.5-4.9)
[2021-03-06] MEDS ORDERED: ACETAMINOPHEN 500 MG TAB ONE ×2 (17:06→20:16)
[2021-03-06] MEDS ORDERED: LORazepam 2 MG/ML VIAL ONE (20:14)
[2021-03-06] MEDS: HALOPERIDOL LACT 5 MG/ML INJ IM PRN (22:47)
[2021-03-06] MEDS ORDERED: HALOPERIDOL LACT 5 MG/ML INJ ONE (22:54)
[2021-03-07] MEDS: HEPARIN 5000 UNIT/ML 1 ML VIAL SQ SCH ×3 (00:20→17:00)
[2021-03-07] MEDS: PIPER TAZO 3.375 GM in NA CHLORIDE 0.9% 100 ML IV SCH ×2 (00:21→09:00)
[2021-03-07] MEDS: D5 0.45 NS 1,000 ML IV SCH ×3 (00:21→20:27)
[2021-03-07] MEDS ORDERED: PIPERACIL/TAZO 3.375 GM VIAL IV ONE ×2 (00:38→08:45)
[2021-03-07] MEDS ORDERED: HEPARIN 5000 UNIT/ML 1 ML VIAL ONE ×4 (00:38→23:37)
[2021-03-07] MEDS ORDERED: D5 0.45 NS 1,000 ML IV ONE ×3 (00:38→20:41)
[2021-03-07] MEDS ORDERED: NA CHLORIDE 0.9% 0 ML ONE (00:39)
[2021-03-07] MEDS ORDERED: NA CHLORIDE 0.9% 100 ML ONE ×2 (00:41→08:46)
[2021-03-07] MEDS: ACETAMINOPHEN 500 MG TAB PO PRN ×2 (03:15→08:22)
[2021-03-07] MEDS ORDERED: ACETAMINOPHEN 500 MG TAB ONE ×2 (03:28→08:43)
[2021-03-07 04:33] LABS: Absolute Lymphocytes (CBC) 3.6 K/uL (0.7-4.9); Basophils % 2.3 % (0-1.3); Hematocrit 34.2 % (36.0-45.0); Lymphocytes % 26.7 % (15.3-44.8); MPV 6.7 fL (7.6-11.3); RBC Red Blood Cell Count 3.73 M/uL (3.86-4.86)
[2021-03-07 04:50] LABS: Albumin 2.7 g/dL (3.4-5.0); Bilirubin Total 0.4 mg/dL (0.2-1.0); Potassium 4.1 mmol/L (3.5-5.1); Protein, Total 6.1 g/dL (6.4-8.2)
--- NOTE | 2021-03-07 07:09 | EKG ---
Test Date: 2021-03-05 Test Time: 17:03:46 Cotton Buyer: ADÁN MEASUREMENT RESULTS: Intervals: Rate: 98 IN: 176 QRSD: 102 QT: 380 QTc: 485 [place]: P: 57 IN: 176 QRS: -5 T: 54 INTERPRETIVE STATEMENTS: Normal sinus rhythm Inferior infarct, age undetermined Abnormal ECG Compared to ECG 08/26/2020 16:33:22 Incomplete right bundle-branch block no longer present Myocardial infarct finding still present Electronically Signed On 03-07-21 07:04:56 CDT by Joe Goyal
[2021-03-07] MEDS ORDERED: FAMOTIDINE 20 MG/2 ML VIAL IV ONE (08:44)
[2021-03-07] MEDS ORDERED: FOLIC ACID 1 MG, MULTIVITAMINS INJ 10 ML, THIAMINE HCL 100 MG in NA CHLORIDE 0.9% 1,000 ML IV SCH (09:00)
[2021-03-07] MEDS: FAMOTIDINE 20 MG/2 ML VIAL IV SCH (09:00)
--- NOTE | 2021-03-07 12:30 | P.CNS ---
Date of Consult: 03/06/21 Reason for Consult: Respiratory failure Chief Complaint: suicide attempt History of Present Illness: Patient is 75 years of age multiple medical problems with a history of attempted suicide before was found unresponsive patient was intubated the time of my angel luation was doing well on the ventilator for follow-up was just stopped otherwise stable she was also hypotensive hypoxic significantly elevated alcohol level Allergies hydrocodone [Hydrocodone] Adverse Reaction (Intermediate, Verified 07/19/11 06:25) Nausea/Vomiting Home Medications: Albuterol Sulfate [Proair Hfa] 2 puff IN Q4H PRN 03/02/19 Diphenhydramine [Benadryl*] 25 mg PO BEDTIME PRN 03/02/19 Levothyroxine Sodium 50 mcg PO 0900 03/02/19 Losartan/Hydrochlorothiazide [Losartan-Hctz 100-12.5 mg Tab] 1 tab PO DAILY 03/02/19 Simvastatin 40 mg PO DAILY 03/02/19 Temazepam 15 mg PO BEDTIME 03/02/19 Benzonatate [Tessalon Perle*] 100 mg PO Q6H PRN 5 Days #20 cap 08/27/20 Fluticasone/Salmeterol [Advair 250-50 Diskus] 1 each IH BID 30 Days #1 blst.w.dev 08/27/20 predniSONE [Deltasone*] 10 mg PO BID 10 Days #20 tab 08/27/20 - Past Medical/Surgical History Diabetic: No -: hypertension -: hypothyroid -: anxiety -: Suspected COPD -: tonsillectomy -: appendectomy -: ruptured spleen -: hysterectomy -: cyst removal from kidney -: left hand surgery Psychosocial/ Personal History: Patient retired, lives with family - Family History Father Notes: aortic aneurysm - Social History Smoking Status: Unknown if ever smoked Alcohol use: Yes CD- Drugs: Yes Caffeine use: Yes Place of Residence: Home Review of Systems is unable to be obtained Physical Examination Temp Pulse Resp BP Pulse Ox 97.5 F 85 20 132/75 98 03/07/21 12:00 03/07/21 12:00 03/07/21 12:00 03/07/21 12:00 03/07/21 12:00 General: Unresponsive Respiratory: Clear to auscultation bilaterally Cardiovascular: No edema, Normal S1 S2 - Problems (1) Respiratory failure Current Visit: Yes Status: Acute Plan: Patient is 75 years of age was found unresponsive hypoxic intubated possible drug overdose she has had suicidal attempts before plan to wean her off and extubate from the ventilator chemistries reviewed chest x-ray is clear vital signs stable is cussed with respiratory when she is more awake plan to extubate Qualifiers: Chronicity: acute
--- NOTE | 2021-03-07 13:27 | RAD REPORT ---
EXAM DESCRIPTION: Cathryn Single View03/07/2021 1:03 pm CLINICAL HISTORY: Respiratory failure COMPARISON: March 05, 2021 FINDINGS: Endotracheal and nasogastric tubes been removed. The lungs appear clear of acute infiltrate. The heart is normal size. Calcified lung granulomas are noted. IMPRESSION: No acute abnormalities displayed
--- NOTE | 2021-03-07 17:53 | P.PN ---
Subjective Date of Service: 03/07/21 Chief Complaint: suicide attempt Patient successfully extubated yesterday. She is currently awake and alert. Tolerating food. She is maintained on oxygen by nasal cannula. Physical Examination - Vital Signs Temperature: 98.7 F Blood Pressure: 139/92 Pulse: 85 Respirations: 20 Pulse Ox (%): 98 - Physical Exam General: Alert, In no apparent distress, Oriented x3 HEENT: Atraumatic, Mucous membr. moist/pink Neck: JVD not distended Respiratory: Clear to auscultation bilaterally, Normal air movement Cardiovascular: No edema, Regular rate/rhythm, Normal S1 S2 Gastrointestinal: Normal bowel sounds, Soft and benign, Non-distended, No tenderness Musculoskeletal: No swelling Integumentary: No rashes Neurological: Normal speech, Normal strength at 5/5 x4 extr Assessment And Plan - Current Problems (Diagnosis) (1) Alcohol intoxication Current Visit: Yes Status: Acute Qualifiers: Complication of substance-induced condition: with unspecified complication Qualified Code(s): F10.929 - Alcohol use, unspecified with intoxication, unspecified (2) Suicide attempt Current Visit: Yes Status: Acute (3) COPD (chronic obstructive pulmonary disease) Current Visit: Yes Status: Chronic Qualifiers: COPD type: unspecified COPD Qualified Code(s): J44.9 - Chronic obstructive pulmonary disease, unspecified (4) Acute metabolic encephalopathy Current Visit: Yes Status: Acute (5) Aspiration pneumonia Current Visit: Yes Status: Acute Qualifiers: Aspiration pneumonia type: unspecified Laterality: unspecified laterality Lung location: unspecified part of lung Qualified Code(s): J69.0 - Pneumonitis due to inhalation of food and vomit (6) Hypovolemic shock Current Visit: Yes Status: Acute - Plan Patient extubated. Hypovolemic shock resolved. Patient is currently normotensive. Currently on oxygen by nasal canula. Pulmonary input appreciated. Had a discussion with the patient. She denied any suicidal attempt. She stated she took sleeping pills and drank a glass of vodka. She states she drinks a glass of vodka every night. Her alcohol level was 317 on presentation and does not correspond with the amount of alcohol she stated she took. She mentioned she she was upset with her daughter and told her she will end her life that given before she took the sleeping pill and drank alcohol. She stated her daughter might have wheat and oats flake miller her actions as suicide. She reports history of depression from year old adulthood and has been taking fluoxetine for a long time. She has not seen a psychiatrist or the counselor for several years. Monitor for alcohol withdrawal symptoms. Ativan IV p.r.n. Diet as tolerated. Continue IV antibiotics for possible aspiration pneumonia. Psychiatry consulted. Case discussed with Dr. Tinsley will plans to evaluate patient tomorrow morning. Replete electrolytes as needed. Monitor CBC and blood chemistry.
[2021-03-07] MEDS: HOME MED 1 EA UNK (Fluticasone/Salmeterol [Advair 250-50 Diskus] Blst.W.Dev) IH SCH (20:26)
[2021-03-07] MEDS ORDERED: HALOPERIDOL LACT 5 MG/ML INJ ONE (20:43)
[2021-03-07] MEDS: HALOPERIDOL LACT 5 MG/ML INJ IM PRN (21:16)
[2021-03-08] MEDS: HEPARIN 5000 UNIT/ML 1 ML VIAL SQ SCH ×2 (00:28→09:00)
[2021-03-08 05:05] LABS: Absolute Lymphocytes (CBC) 4.3 K/uL (0.7-4.9); Basophils % 1.8 % (0-1.3); Hematocrit 35.8 % (36.0-45.0); Lymphocytes % 29.8 % (15.3-44.8); RBC Red Blood Cell Count 3.91 M/uL (3.86-4.86)
[2021-03-08 05:21] LABS: Albumin 3.1 g/dL (3.4-5.0); Bilirubin Total 0.4 mg/dL (0.2-1.0); Magnesium 2.2 mg/dL (1.8-2.4); Potassium 3.7 mmol/L (3.5-5.1); Protein, Total 6.9 g/dL (6.4-8.2)
[2021-03-08] MEDS ORDERED: POTASSIUM 25 MEQ EFFERV TAB PO ONE (05:54)
[2021-03-08] MEDS ORDERED: POTASSIUM 25 MEQ EFFERV TAB ONE (06:23)
[2021-03-08] MEDS ORDERED: LEVOTHYROXINE SOD 0.05 MG TABLET PO SCH ×2 (07:30→09:00)
[2021-03-08 07:55] VITALS: TEMP 98.7
[2021-03-08] MEDS: D5 0.45 NS 1,000 ML IV SCH (08:00)
[2021-03-08] MEDS ORDERED: HOME MED 1 EA UNK (Simvastatin [Simvastatin] 40 MG Tablet) PO SCH (09:00)
[2021-03-08] MEDS: HOME MED 1 EA UNK (Fluticasone/Salmeterol [Advair 250-50 Diskus] Blst.W.Dev) IH SCH (09:00)
[2021-03-08] MEDS ORDERED: HOME MED 1 EA UNK (Losartan/Hydrochlorothiazide [Losartan-Hctz 100-12.5 Mg Tab] Tablet) PO SCH (09:00)
[2021-03-08] MEDS ORDERED: LOSARTAN/HCTZ 50-12.5 PO SCH (09:00)
[2021-03-08] MEDS ORDERED: LOSARTAN POTASSIUM 50 MG TABLET PO SCH (09:00)
[2021-03-08] MEDS ORDERED: ATORVASTATIN 20 MG TAB PO SCH (09:00)
[2021-03-08 09:41] VITALS: O2SAT 99
[2021-03-08] MEDS ORDERED: ATORVASTATIN 20 MG TAB ONE (10:13)
[2021-03-08] MEDS ORDERED: LOSARTAN POTASSIUM 50 MG TABLET ONE (10:13)
[2021-03-08] MEDS ORDERED: HEPARIN 5000 UNIT/ML 1 ML VIAL ONE (10:13)
[2021-03-08] MEDS ORDERED: hydroCHLOROthiazide 25 MG TAB ONE (10:14)
[2021-03-08] MEDS ORDERED: ALBUTEROL 2.5 MG/3 ML NEB SOL NEB PRN (10:46)
[2021-03-08] MEDS ORDERED: FLUOXETINE 20 MG CAP PO SCH (11:30)
--- NOTE | 2021-03-08 14:09 | P.PN ---
Date of Service: 03/08/21 Subjective: Patient feeling better, denies suicidal thoughts. States this really only occurs when she is drinking alcohol. She states that she is remorseful, no plans to hurt herself currently. Reports ongoing shortness of breath, still on 2 L nasal cannula, mild cough. She does report recently being treated with steroids, outpatient basis from pulmonology Denies nausea/vomiting, no abdominal/chest pain, no diarrhea ROS: 10 point review of systems otherwise negative Physical Exam General: Alert, In no apparent distress, Oriented x3 HEENT: Atraumatic, Mucous membr. moist/pink Respiratory: Slightly diminished at bases bilaterally mild expiratory wheeze, otherwise clear to auscultation, nonlabored on 2 L nasal cannula Cardiovascular: No edema, Regular rate/rhythm, Normal S1 S2 Gastrointestinal: soft, Non-distended, No tenderness Musculoskeletal: No swelling Neurological: Normal speech, Normal strength at 5/5 x4 extr Assessment And Plan Possible suicide attempt, no longer with suicidal ideation Alcohol intoxication, history of chronic alcohol use Acute on chronic COPD exacerbation with hypoxemia Acute metabolic encephalopathy secondary to medication Pneumonitis versus possible aspiration pneumonia Hypovolemic shock, resolved Patient extubated a few days go. Hypovolemic shock resolved. Patient is currently normotensive / hypertensive on 2 L NC, SpO2 down to mid-80s on RA within seconds of removing NC this morning Pulmonary input appreciated. possible aspiration pneumonia vs pneumonitis Currently denies any suicide ideation, does not have any current plans to harm self. States this all seems to be related when she drinks alcohol, states she has a plan to cut back/quit soon. Psych to see patient today monitor cbc / electrolytes can downgrade patient to telemetry - no longer suicidal Replete electrolytes as needed. Monitor CBC and blood chemistry. wean O2 PT consulted Dispo: anticipate dc home in 24- 48hrs
--- NOTE | 2021-03-08 15:43 | P.DS ---
Admission Date: 03/05/21 Discharge Date: 03/08/21 Disposition: ROUTINE DISCHARGE Discharge Condition: GOOD Reason for Admission: suicide attempt Consultations: Pulmonology - Dr. Hopson Psychiatry - Dr. Tinsley Procedures: CXR (03/05): Tip of the endotracheal tube is at the level of the superior margin of the aortic arch, considered properly placed. Enteric tube descends in the stomach. Mild bilateral interstitial opacities, greatest on the left in the left lung base likely indicates infection/pneumonia.The heart is upper limit normal size. CXR (03/07): The lungs appear clear of acute infiltrate. The heart is normal size. Calcified lung granulomas are noted. IMPRESSION: No acute abnormalities displayed Problem list Possible suicide attempt, no longer with suicidal ideation Alcohol intoxication, history of chronic alcohol use Acute on chronic COPD exacerbation with hypoxemia Acute metabolic encephalopathy secondary to medication overdose / alcohol intoxication Hypovolemic shock, resolved secondary to overmedication / intoxication Brief History of Present Illness: 75 yo F with anxiety and depression, hypertension, hypothyroidism and copd who was brought in by EMS for suicide attempt and overdose. Patient told police that she took sleeping medications and sedatives in order to kill herself. EMS reports she was initially more alert but had a progressive decrease in mental status. She was given 2mg of Narcan by EMS without improvement. Patient has attempted suicide in the past with ambien and alcohol. EMS did not find pills near or around the patient upon arrival so unknown exactly what she took. Patient presented with a GCS of 8 or 9 which decreased to 6 or 7 so ER physician intubated the patient and placed a central line. She was also hypotensive and hypoxic and was initially started on levophed and propofol. WBC 16.2. BUN 26, Cr 1.34, GFR 39. Alcohol 317. Hospital Course: Patient was intubated on admission. Pulmonology was consulted. Patient improved rather quickly this medications and medical worked out of her system. She was subsequently extubated and continued to do well. There was no evidence of acute infectious process or any other pathologic process going on besides her overmedication and alcohol intoxication. After extubation, she did report having ongoing COPD exacerbation, and she was treated with nebulizers and prednisone. The patient's daughter felt this was repeated suicide attempt. Psychiatry was consulted and evaluated the patient on 03/08. Was felt that the patient was no longer suicidal, expressed remorse and no further intent to harm herself. Recommended increasing Prozac to 60 mg daily. Patient was weaned off oxygen, she was ambulating with some mild dyspnea. She was deemed stable to discharge home with her daughter. She is to continue with a new prescription of prednisone 10 mg twice daily x10 days per pulmonology. Otherwise she is to continue her other home medications. Follow-up with pulmonology in 1 week. Follow-up with PCP in 3 to 5 days. Follow-up with psychiatry within 3 days Vital Signs/Physical Exam: Physical Exam General: Alert, In no apparent distress, Oriented x3 HEENT: Atraumatic, Mucous membr. moist/pink Respiratory: Slightly diminished at bases bilaterally with mild expiratory wheeze, nonlabored on room air Cardiovascular: No edema, Regular rate/rhythm, Normal S1 S2 Gastrointestinal: soft, Non-distended, No tenderness Musculoskeletal: No swelling Neurological: Normal speech, Normal strength at 5/5 x4 extr Temp Pulse Resp BP Pulse Ox 98.7 F 101 H 20 131/75 98 03/08/21 07:00 03/08/21 15:00 03/08/21 15:00 03/08/21 15:00 03/08/21 15:00 Laboratory Data at Discharge: WBC 14.40 K/uL (4.3-10.9) H 03/08/21 04:54 Hgb 11.7 g/dL (12.0-15.0) L 03/08/21 04:54 Hct 35.8 % (36.0-45.0) L 03/08/21 04:54 Plt Count 430 K/uL (152-406) H 03/08/21 04:54 PT 10.2 SECONDS (9.5-12.5) 03/05/21 17:06 INR 0.89 03/05/21 17:06 APTT 33.0 SECONDS (24.3-36.9) 03/05/21 17:06 Sodium 141 mmol/L (136-145) 03/08/21 04:54 Potassium Cancelled 03/08/21 10:00 BUN 14 mg/dL (7-18) 03/08/21 04:54 Creatinine 1.03 mg/dL (0.55-1.3) 03/08/21 04:54 Glucose 109 mg/dL (74-106) H 03/08/21 04:54 Phosphorus 2.7 mg/dL (2.5-4.9) 03/06/21 16:25 Magnesium 2.2 mg/dL (1.8-2.4) 03/08/21 04:54 Total Bilirubin 0.4 mg/dL (0.2-1.0) 03/08/21 04:54 AST 19 U/L (15-37) 03/08/21 04:54 ALT 32 U/L (12-78) 03/08/21 04:54 Alkaline Phosphatase 66 U/L (45-117) 03/08/21 04:54 Triglycerides 295 mg/dL (<150) H 03/06/21 05:15 Cholesterol 151 mg/dL (<200) 03/06/21 05:15 HDL Cholesterol 73 mg/dL (40-60) H 03/06/21 05:15 Cholesterol/HDL Ratio 2.07 03/06/21 05:15 Home Medications: Albuterol Sulfate [Proair Hfa] 2 puff IN Q4H PRN 03/02/19 Diphenhydramine [Benadryl*] 25 mg PO BEDTIME PRN 03/02/19 Levothyroxine Sodium 50 mcg PO 0900 03/02/19 Losartan/Hydrochlorothiazide [Losartan-Hctz 100-12.5 mg Tab] 1 tab PO DAILY 03/02/19 Simvastatin 40 mg PO DAILY 03/02/19 Temazepam 15 mg PO BEDTIME 03/02/19 Benzonatate [Tessalon Perle*] 100 mg PO Q6H PRN 5 Days #20 cap 08/27/20 Fluticasone/Salmeterol [Advair 250-50 Diskus] 1 each IH BID 30 Days #1 blst.w.dev 08/27/20 Fluoxetine HCl [Prozac] 60 mg PO DAILY 30 Days #90 capsule 03/08/21 predniSONE [Deltasone*] 10 mg PO BID 10 Days #20 tab 03/08/21 New Medications: predniSONE [Deltasone*] 10 mg PO BID 10 Days #20 tab Fluoxetine HCl [Prozac] 60 mg PO DAILY 30 Days #90 capsule Physician Discharge Instructions: You were found to be minimally responsive due to medication and alcohol intake. You required intubation (mechanical ventilation). You improved with IV fluids and with time to allow the medications/alcohol to wear off. You did not have evidence of infection. You did briefly require some oxygen and were treated for acute COPD exacerbation. Dr. Hopson was consulted and agreed you were stable for discharge home. Dr. Tinsley was consulted (Psych) and recommended discharge with higher dose prescription for your Prozac. Follow up with Dr. Tinsley within 3 days, as discussed. Follow up with Dr. Hopson in 1 week. Diet: Regular Activity: Ad lee Followup: NONE,NONE [Primary Care Provider] - Time spent managing pt's care (in minutes): 45
[2021-03-08 16:13] VITALS: BP 131/69
--- NOTE | 2021-03-10 10:10 | CON ---
at [facility]. Reason For Consult: To evaluate patient for depression and suicidal ideations. History Of Present Illness: Ms. Edd Cowan is a 75-year-old female, , with a psych iatric history significant for major depressive disorder, recurrent anxiety disorder, unspecified. T he patient was brought into the emergency room the night of March 08, 2021, on account of being fou nd with an apparent overdose of medication in attempt to kill herself. On interview today , the patient was remorseful of her action, states she is no longer suicidal and endorsed she is stil l depressed. She states that what she did was "stupid" . The patient admits a history of recurrent depression, also admits to previous hospitalization in the past 5 years. She states that s he began taking Prozac all her life, ibuprofen, and states the current depressive episode was trigger ed by every day life stressors, [place] situation [place] the country, home. They both live to gether in the house, and they are both together. The patient states she got really hurt and got more depressed. She said she acted impulsively by drinking. She said she knows she has to give up her d rinking habit . She also has history of insomnia. The patient admits to anhedonia, lack o f energy or motivation. She states in the past her depression was better controlled with Prozac at 4 0 mg, but seems to have lost its effect. She denies history of psychosis, denies history of bipolar depression, denies history of OCD, no history of PTSD though she trauma. She is on Med[facility] and also a therapist. She states she will follow up with she does have other options [facility] include given the environment . I also spoke with the patient's daughter who __ discharged home as she will be able to monitor her and make sure she follows with the psychiatric consult on discharge. Objective: Vital Signs: Blood pressure is 121/75, her heart rate is 93 beats per minute, respirator y rate is 18 beats per minute. The patient is saturating 98% on oxygen via nasal cannula. Mental Status Examination: The patient is an obese female not in any acute dist ress, on oxygen via nasal cannula. She is cooperative with interview. Speech is spontaneous, normal in rate, rhythm, and volume. No preservation noted. . Mood, she described a dysphoric a ffect. Mood congruent. Thought process, mostly linear; at times, circumstantial. Thought content, no delusional thinking. Currently, denies suicidal ideation. Remorseful . No visual or a uditory hallucination. The patient has . Insight, judgement, impulse control is fair. F und of knowledge is fair. Language skill is fair. Impression: A 75-year-old female with history of chronic depression. suicidal attempt by overdose on prescription medication , no longer having suicidal ideation but sti ll felling depressed would like to give up drinking. Prognosis is fair. Diagnoses: 1.Major depressive disorder, recurrent, severe, has psychotic features. 2.Anxiety disorder, unspecified. 3.Overuse of . Plan: 1.Recommend again discharge home with her daughter . 2.Follow up with psychiatric psychiatry outpatient clinic. 3.We are recommending patient Prozac 60 mg for depression secondary to concerns for . KO/MODL Voice ID: [id number] Report ID: [id number]
== END 2021-03-08 16:00 | disposition home or self-care (01) | DRG 917 ==
LOC: ER 16:59 → ERHOLD 19:03
PROVIDERS: ADMIT Internal Medicine; ATTEND Internal Medicine
PROC: 0BH17EZ Insertion of Endotracheal Airway into Trachea, Via Natural or Artificial Opening (ICD-10-PCS; principal; 2021-03-05)
PROC: 5A1935Z Respiratory Ventilation, Less than 24 Consecutive Hours (ICD-10-PCS; 2021-03-05)
DX: T42.72XA Poisoning by unspecified antiepileptic and sedative-hypnotic drugs, intentional self-harm, initial encounter (principal); G92.8 Other toxic encephalopathy; R57.1 Hypovolemic shock; J69.0 Pneumonitis due to inhalation of food and vomit; J96.01 Acute respiratory failure with hypoxia; J44.1 Chronic obstructive pulmonary disease with (acute) exacerbation; N17.9 Acute kidney failure, unspecified; T51.0X2A Toxic effect of ethanol, intentional self-harm, initial encounter; Y92.009 Unspecified place in unspecified non-institutional (private) residence as the place of occurrence of the external cause; F41.8 Other specified anxiety disorders; I10 Essential (primary) hypertension; E03.9 Hypothyroidism, unspecified; F10.129 Alcohol abuse with intoxication, unspecified; R40.2432 Glasgow coma scale score 3-8, at arrival to emergency department; E78.5 Hyperlipidemia, unspecified; Z20.822 Contact with and (suspected) exposure to COVID-19
CPT/HCPCS: 31500; 36415; 51702; 71045; 80048; 80053; 80061; 80076; 80307; 80320; 80329; 81003; 82805; 83735; 84100; 84132; 84439; 84443; 85025; 85610; 85730; 93005; 94002; 94760; 99291; 99292; J0330; J1170; J1630; J1644; J2250; J2543; J2704; J3010; J3411; J3480; J7030; J7799; U0003